=== PATIENT | female | born 1960 | race Caucasian/White ===

== ENCOUNTER → 2017-06-14 10:29 | Outpatient (CLI) | payer BC, SELFPAY ==
[2017-06-14 13:17] LABS: Anion Gap 10 (5-15); BUN 10 mg/dL (7-18); Calcium,Total 9.2 mg/dL (8.5-10.1); Chloride 99 mmol/L (98-107); Cholesterol 193 mg/dL (200); Creatinine, Serum 0.67 mg/dL (0.55-1.02); EST Glomerular Filtration Rate 96 mL/min (>60); Est Glom Filt Rate - Afr Amer 117 mL/min (>60); Glucose 84 mg/dL (74-106); High Density Lipoprotein 58 mg/dL; Potassium 3.9 mmol/L (3.5-5.1); Sodium Level 136 mmol/L (136-145); Triglycerides 304 mg/dL; Very Low Density Lipoprotein 61 mg/dL (5-40)
== END ==
PROVIDERS: Family Provider Family Medicine; PCP Family Medicine; Visit Provider Family Medicine
DX: I10 Essential (primary) hypertension (principal); E78.00 Pure hypercholesterolemia, unspecified
CPT/HCPCS: 36415; 80048; 80061

== ENCOUNTER → 2017-07-05 15:56 | Outpatient (CLI) | payer BC, SELFPAY ==
--- NOTE | 2017-07-05 15:58 | HPBI_ITS ---
MAMMOGRAPHY - BILATERAL SCREENING REASON FOR EXAM: Female, 56 years old. Routine annual screening examination. PERTINENT HISTORY: Non-contributory. TECHNIQUE: Digital bilateral breast vivien (3D mammographic acquisition) in the CC and MLO projections. 2-D mediolateral oblique (MLO) and craniocaudad (CC) views of both breasts were obtained. CAD: Full Field Digital Mammography with Computer Added Detection was performed. COMPARISON: Comparison is made with prior study dated May 29, 2015 and May 23, 2014. FINDINGS: Breast Composition: There are scattered areas of fibroglandular density. There are no dominant masses or suspicious calcifications. No other significant abnormalities are identified. There has been no significant change since the prior study. HPBI/SCREENING MAMM (CAD), BILAT IMPRESSION: Stable bilateral screening mammogram. Yearly follow-up mammogram recommended. (A) ASSESSMENT CATEGORY: BIRADS Category 1: Negative. A letter regarding these results will be sent to the patient by the facility within 30 days. Approximately 10% of breast cancers are not detected by mammography. A normal mammogram should not delay biopsy of a clinically suspicious abnormality. [id number] Electronically Signed: Shane George MD at 8:06 EDT Tel [phone], Service support ,
== END ==
PROVIDERS: Family Provider Family Medicine; PCP Family Medicine; Visit Provider Family Medicine
DX: Z12.31 Encounter for screening mammogram for malignant neoplasm of breast (principal)
CPT/HCPCS: 77063; 77067

== ENCOUNTER → 2018-03-15 08:41 | Outpatient (CLI) | payer BC, SELFPAY ==
[2018-03-15 10:31] LABS: Cholesterol 236 mg/dL (200); High Density Lipoprotein 64 mg/dL; Triglycerides 320 mg/dL; Very Low Density Lipoprotein 64 mg/dL (5-40)
[2018-03-15 10:46] LABS: Vitamin D,25 Hydroxy 30.8 ng/mL (29.95-100.01)
--- OUTSIDE RECORDS SUMMARY | 2018-05-10 14:02 | XMS RPT_ITS ---
:1960 Author Organization OHIP Care Team Providers Name Role Phone Flip Leone Attending Unavailable Flip Leone Primary Care Unavailable Flip Leone Attending Unavailable Flip Leone Primary Care Unavailable Flip Leone Attending Unavailable Flip Leone Primary Care Unavailable YOVANI DAMON Admitting Unavailable YOVANI DAMON Attending Unavailable YOVANI DAMON Referring Unavailable TYLER DANIELS (PA) Attending Unavailable FLIP LEONE Referring Unavailable PROBLEMS PROBLEMS DATE TYPE CONDITION / CODE ATTENDING STATUS SOURCE 03/15/2018 Unknown E78.00 - Pure Flip Leone Active [facility] hypercholesterolem [facility], unspecified / Hospital E78.00(ICD-10) Repository 03/15/2018 Unknown E55.9 - Vitamin D Flip Leone Active [facility] deficiency, Community unspecified / Hospital E55.9(ICD-10) Repository 07/22/2017 Active Family history of MARISOL, Active [facility] malignant neoplasm YOVANI T [facility] of digestive Repository organs / Z80.0(ICD-10) 06/14/2017 Unknown I10 - Essential Flip Leone Active [facility] (primary) [facility] hypertension / Hospital I10(ICD-10) Repository PROCEDURES PROCEDURES No Procedure Records FoundRESULTS RESULTS LIPID PROFILE Collected: 03/15/2018 Status: F Source: [place] 8:45 AM [facility] REPOSITORY TYPE CODE TESTS RESULT OUT OF RANGE REFERENCE UNITS LAB L501.4900 200 mg/dL High CHOL 236 Result Comment: <200 mg/dL Desirable 200-240 mg/dL Borderline >240 mg/dL High Risk LAB L501.5000 mg/dL High TRIG 320 Result Comment: The drugs N-Acetylcysteine and Metamizole may falsely depress this assay. Serum Triglycerides Reference Interval Normal <150 mg/dL Borderline high 150 - 199 mg/dL High 200 - 499 mg/dL Very High > or = 500 mg/dL LAB L501.6400 mg/dL Normal HDL 64 Result Comment: The drugs N-Acetylcysteine and Metamizole may falsely depress this assay. Reference Range HDL <40 mg/dL Low HDL Cholesterol HDL >or= 60 mg/dL High HDL Cholesterol LAB L501.6500 0-130 mg/dL Normal LDL 108 LAB L501.6600 5-40 mg/dL High VLDL 64 Performed By: #### L500.4100 #### [facility] [address] [place], [address] VITAMIN D,25 HYDROXY Collected: 03/15/2018 Status: F Source: [place] 8:45 AM [facility] REPOSITORY TYPE CODE TESTS RESULT OUT OF RANGE REFERENCE UNITS LAB L506.1000 29.95-100.01 ng/mL Normal Vitamin D 30.8 25-OH Result Comment: Vitamin D 25(OH) Status Range Deficiency <20 ng/mL (50nmol/L) Insuffciency 20 - 30 ng/mL (50 - 75 nmol/L) Sufficiency 30 - 100 ng/mL (75 - 250 nmol/L) Toxicity >100 ng/mL (>250 nmol/L) Performed By: #### L506.1000 #### [facility] [address] [place], [address] NURSING PROG Observed: 07/22/2017 Status: COMPLETED Source: [place] 12:58 PM [facility] REPOSITORY HNO ID: [id number] Author: Vito RaymondRnGloria Salter RN Service: Nursing Author Type: Registered Nurse Type: Nursing Progress Note Filed: 07/22/2017 1:00 PM Note Text: Patient did not experience a fall prior to discharge. Patient did not experience a burn prior to discharge. Vito Salter RN NURSING PROG Observed: 07/22/2017 Status: COMPLETED Source: [place] 12:40 PM [facility] REPOSITORY HNO ID: [id number] Author: Vito RaymondRnGloria Salter RN Service: Nursing Author Type: Registered Nurse Type: Nursing Progress Note Filed: 07/22/2017 12:41 PM Note Text: Tolerating snack well, sister at her side. PT ED Observed: 07/22/2017 Status: COMPLETED Source: [place] 12:25 PM [facility] REPOSITORY HNO ID: [id number] Author: Vito Salter RN Service: Nursing Author Type: Registered Nurse Type: Patient Education Filed: 07/22/2017 12:25 PM Note Text: POST OP LEARNING RESPONSE INSTRUCTION PROVIDED TO: Patient and family member METHOD OF INSTRUCTION: Individual instruction Written instruction - handouts Verbal instruction PATIENT / FAMILY RESPONSE: Information received as demonstrated by interest and questions FOLLOW-UP PLAN: Patient instructed to call with any further issues SUPPLEMENTAL MATERIAL: None REFERRAL (RECOMMENDATION): None Electronically Signed By: Vito Salter RN In Department: AMBULATORY SURGERY NURSING PROG Observed: 07/22/2017 Status: COMPLETED Source: [place] 12:20 PM [facility] REPOSITORY HNO ID: [id number] Author: Vito RaymondRn) JESSIE Salter Service: Nursing Author Type: Registered Nurse Type: Nursing Progress Note Filed: 07/22/2017 12:23 PM Note Text: Dr Damon to visit, with sister. NURSING PROG Observed: 07/22/2017 Status: COMPLETED Source: [place] 12:02 PM [facility] REPOSITORY HNO ID: [id number] Author: Samantha Moise RN Service: (none) Author Type: Registered Nurse Type: Nursing Progress Note Filed: 07/22/2017 12:02 PM Note Text: Patient did not experience a fall within the Intraoperative area. Patient did not experience a burn within the Intraoperative area. Samantha Moise RN NURSING PROG Observed: 07/22/2017 Status: COMPLETED Source: [place] 11:45 AM [facility] REPOSITORY HNO ID: [id number] Author: Dora Siddiqui RN Service: (none) Author Type: Registered Nurse Type: Nursing Progress Note Filed: 07/22/2017 11:46 AM Note Text: [facility] PRE-OP NURSING HAND OFF NOTE SBAR Hand off given to Darcie Juarez RN. Hand off was communicated verbally and at the patient's bedside and all questions were answered. FALLS/FITZGERALD Patient did not experience a fall within the Preoperative area. Patient did not experience a burn within the Preoperative area. Dora Siddiqui RN PT ED Observed: 07/22/2017 Status: COMPLETED Source: [place] 11:22 AM [facility] REPOSITORY HNO ID: [id number] Author: Nikki RaymondRnGloria Okeefe RN Service: (none) Author Type: Registered Nurse Type: Patient Education Filed: 07/22/2017 11:23 AM Note Text: PRE OP LEARNING ASSESSMENT PROCEDURE/SURGERY: GI PROCEDURES: Colonoscopy READINESS TO LEARN COGNITIVE ABILITY: Alert and oriented MOTIVATION TO LEARN: Eager FAMILY SUPPORT: High - Very involved in pt care PATIENT LEARNS BEST BY: Multiple Methods FACTORS AFFECTING LEARNING: None PHYSICAL LIMITATIONS AFFECTING LEARNING: None Electronically Signed By: Nikki Okeefe RN In Department: AMBULATORY SURGERY HISTORY PHYSICAL Observed: 07/22/2017 Status: COMPLETED Source: [place] 10:37 AM [facility] REPOSITORY HNO ID: [id number] Author: Yovani Damon Service: General Surgery Author Type: Physician Type: HANDP Filed: 07/22/2017 10:37 AM Note Text: HISTORY AND PHYSICAL ? Geo Tran Collin 1960 ? REFERRING PHYSICIAN: Flip Leone MD ? CHIEF COMPLAINT: family history of colon cancer ? HPI: The patient is a 56 year old female referred for endoscopy. Geo notes a strong family history of colon cancer-brother and sister. She is due for surveillance endoscopy, last was in 2013 with 4-year follow-up recommended by Dr. Ramirez. She denies any change in bowel habits, weight changes, blood in stools, black tarry stools or abdominal pain. She denies any upper GI complaints. ? The patient is being seen by me today at the request of Dr. Leone for my opinion and advice regarding screening colonoscopy. Patient denies any cardiac or respiratory issues. She denies problems with sedation in the past. ? ? PAST?MEDICAL?HISTORY PAST MEDICAL HISTORY Diagnosis Date - Benign neoplasm of colon ? - Diverticulosis of colon (without mention of hemorrhage) ? - Family history of malignant neoplasm of gastrointestinal tract ? - Internal hemorrhoids without mention of complication ? - Mixed hyperlipidemia ? - Skin cancer ? ? specific type not recalled - on face ? ? PAST?SURGICAL?HISTORY PAST SURGICAL HISTORY Procedure Laterality Date - COLONOSCOP W/ OR W/O BRSH SPEC ? 01/12/99 ? Colonoscopy - COLONOSCOP W/ OR W/O BRSH SPEC ? 08/02/03 ? Colonoscopy - COLONOSCOP W/ OR W/O BRSH SPEC ? 06/08/2013 ? Colonoscopy - COLONOSCOPY W/BX ? 10/10/09 - MOHS, 1 STAGE, HEAD/NECK/HAND/FEET/GENTIAL ? CURRENT?MEDICATIONS ? Current Outpatient Prescriptions: icosapent ethyl (VASCEPA) 1 gram cap Take by mouth. lisinopril (ZESTRIL, PRINIVIL) 10 mg tablet Take 10 mg by mouth once daily. rosuvastatin (CRESTOR) 10 mg tablet Take 10 mg by mouth once daily. CALCIUM PHOSPHATE DIBAS/VIT D3 (VITAMIN D, WITH CALCIUM, ORAL) Take by mouth. ? No current facility-administered medications for this visit. ? ALLERGIES: Review of patient's allergies indicates no known allergies. ? PERSONAL HISTORY: SOCIAL?HISTORY Social History Marital status: Spouse name: Years of education: Number of children: 1 ? Occupational History Occupation Employer Comment [employer] ? Social History Main Topics Smoking status: Never Smoker ? Alcohol use: Yes Drug use: No ? FAMILY HISTORY: FAMILY?HISTORY FAMILY HISTORY Problem Relation Age of Onset - Colon Cancer Sister ? ? ? Diagnosed at age 48 - Colon Cancer Brother ? ? ? of the disease at age 38 ? ? REVIEW OF SYMPTOMS: The review of systems data was entered by the nurse and reviewed by me ? Nursing Notes: Martha Ortiz LPN 06/28/2017 8:28 AM Signed REVIEW OF SYSTEMS: General: The patient denies fatigue, denies weight loss, denies weight gain, denies feeling hot, and denies feelings of cold. Eyes: The patient denies glaucoma, denies eye injury/surgery, does not wear glasses or contacts. Ear/Nose/Throat: The patient denies allergies, denies hayfever, denies ear infections, and denies bloody noses. Cardiovascular: The patient denies chest pain, denies heart disease, denies high blood pressure,denies cardiac stent, denies prior heart attack, denies irregular heart beat, denies high cholesterol, denies poor circulation, denies heart failure, other cardiac issues, denies claudication, denies cold feet, denies peripheral arterial stent. Respiratory: The patient denies tuberculosis, denies pneumonia, denies frequent cough, denies pulmonary embolism, denies shortness of breath, and denies coughing up blood. Gastrointestinal: The patient denies difficulty swallowing, denies acid reflux, denies ulcers, denies vomiting, denies jaundice/hepatitis, denies gallbladder problems, denies black or tarry stools, denies hemorrhoids, denies bleeding from rectum, denies diverticulitis, denies constipation, denies diarrhea, denies loss of stool control, and denies hernias. Kidney/Bladder: The patient denies kidney stones, denies urine infections, and denies bloody urine. Skin: The patient denies a history of skin cancer, denies bleeding/changing moles, and denies a history of skin rash. Neurologic: The patient denies a history of epilepsy/convulsions, denies headaches, denies head/spinal injuries, and denies stroke/TIA. Psychiatric: The patient denies psychiatric medications, denies depression, and denies voices, denies substance abuse. Endocrine: The patient denies thyroid disorders, denies diabetes, and denies hormonal problems. Hematologic: The patient denies a history of bruising, denies bleeding, and denies anemia, denies blood clots. Infections: The patient denies a history of measles and mumps, denies rheumatic fever, and denies sexually transmitted diseases. Musculoskeletal: The patient denies back pain/injury, denies back problems, denies sciatica, denies knee/foot trouble, denies arthritis, or denies gout. ? ? When was patient's last Mammogram screening? 2 years ago ? Last Colonoscopy: 2013 ? Martha Daniels PA-C ? ?? PHYSICAL EXAMINATION: ? General: The patient is 56 year old female, well nourished, well hydrated in no acute distress. The patient is oriented to time, place, and person. ? VITALS: Blood pressure 148/78, pulse 80, weight 74.8 kg (165 lb). There is no height or weight on file to calculate BMI. ? HEENT: Normal cephalic, ataumatic, pupils are equally round, sclera are anicteric, mucous membranes are moist, oropharynx is clear. Neck has no masses, asymmetry or lymphadenopathy. ? Respiratory: Clear to auscultation and percussion. Normal respiratory excursion and pattern. ? Cardiac: Examination is regular rate and rhythm. ? Abdominal exam: Soft, nontender, with no palpable masses. No hepatosplenomegaly. No palpable hernias. ? Rectal exam: exam deferred ? Extremities: no clubbing, cyanosis or edema. No adenopathy. ? Other: ? LABORATORY VALUES: As Noted ? RADIOLOGIC STUDIES: As Noted ? Assessment IMPRESSION: encounter for high-risk screening colonoscopy, strong family history of colon cancer ? PLAN: We will plan for screening colonoscopy. We discussed the risks and benefits of the planned endoscopy. I have informed the patient that complications can occur including failure to complete the endoscopy and perforation. The patient had the opportunity to ask questions concerning the planned endoscopy. My staff has also explained the procedure to the patient in understandable terms and has given the patient printed material concerning the procedure. The patient freely consents to surgery. ? I plan to use golytely bowel preparation for endoscopy ? ? Diagnoses: (Z80.0) Family history of malignant neoplasm of gastrointestinal tract (primary encounter diagnosis) ? My findings have been communicated to Dr. Leone via shared medical record. This note will be forwarded to Dr. Flip Leone MD. ?? Return to Clinic: The patient is instructed to follow-up with me 1 week post operatively. ? ? I spent 20 minutes in the visit, with more than 50% of the total [id number] time of the visit in counseling / coordination of care. ? ? Tyler Daniels PA-C SCREENING MAMM (CAD), Observed: 07/05/2017 Status: F Source: [place] 3:58 PM [facility] REPOSITORY [facility] Imaging Services [address] [place] [address] SCREENING MAMM (CAD), BILAT MR#: [id number] Acct: [id number] Name: GEO MCGUIRE Rep #: [id number] : 1960 F 56 From: Shane George MD PCP: Flip Leone MD Status: REG CLI Study: SCREENING MAMM (CAD), BILAT Date of Exam: 07/05/17 Exam# [id number] Ordering Dr: Flip Leone MD MAMMOGRAPHY - BILATERAL SCREENING REASON FOR EXAM: Female, 56 years old. Routine annual screening examination. PERTINENT HISTORY: Non-contributory. TECHNIQUE: Digital bilateral breast vivien (3D mammographic acquisition) in the CC and MLO projections. 2-D mediolateral oblique (MLO) and craniocaudad (CC) views of both breasts were obtained. CAD: Full Field Digital Mammography with Computer Added Detection was performed. COMPARISON: Comparison is made with prior study dated May 29, 2015 and May 23, 2014. FINDINGS: Breast Composition: There are scattered areas of fibroglandular density. There are no dominant masses or suspicious calcifications. No other significant abnormalities are identified. There has been no significant change since the prior study. HPBI/SCREENING MAMM (CAD), BILAT IMPRESSION: Stable bilateral screening mammogram. Yearly follow-up mammogram recommended. (A) ASSESSMENT CATEGORY: BIRADS Category 1: Negative. A letter regarding these results will be sent to the patient by the facility within 30 days. Approximately 10% of breast cancers are not detected by mammography. A normal mammogram should not delay biopsy of a clinically suspicious abnormality. [id number] Electronically Signed: Shane George MD at 8:06 EDT Tel [phone], Service support , CC: Flip Leone MD Shower Attendant: Signed PROGRESS Observed: 06/28/2017 Status: COMPLETED Source: [place] 8:38 AM [facility] [place] REPOSITORY HNO ID: [id number] Author: Tyler Daniels (Pa) Service: (none) Author Type: Physician Spanish Interpreter/Translator Type: Progress Notes Filed: 06/28/2017 10:55 AM Note Text: HISTORY AND PHYSICAL Geo Mcguire 1960 REFERRING PHYSICIAN: Flip Leone MD CHIEF COMPLAINT: family history of colon cancer HPI: The patient is a 56 year old female referred for endoscopy. Geo notes a strong family history of colon cancer-brother and sister. She is due for surveillance endoscopy, last was in 2013 with 4-year follow-up recommended by Dr. Ramirez. She denies any change in bowel habits, weight changes, blood in stools, black tarry stools or abdominal pain. She denies any upper GI complaints. The patient is being seen by me today at the request of Dr. Leone for my opinion and advice regarding screening colonoscopy. Patient denies any cardiac or respiratory issues. She denies problems with sedation in the past. PAST MEDICAL HISTORY Diagnosis Date - Benign neoplasm of colon - Diverticulosis of colon (without mention of hemorrhage) - Family history of malignant neoplasm of gastrointestinal tract - Internal hemorrhoids without mention of complication - Mixed hyperlipidemia - Skin cancer specific type not recalled - on face PAST SURGICAL HISTORY Procedure Laterality Date - COLONOSCOP W/ OR W/O [facility] SPEC 01/12/99 Colonoscopy - COLONOSCOP W/ OR W/O BRS SPEC 08/02/03 Colonoscopy - COLONOSCOP W/ OR W/O BRS SPEC 06/08/2013 Colonoscopy - COLONOSCOPY W/BX 10/10/09 - MOHS, 1 STAGE, HEAD/NECK/HAND/FEET/GENTIAL Current Outpatient Prescriptions: icosapent ethyl (VASCEPA) 1 gram cap Take by mouth. lisinopril (ZESTRIL, PRINIVIL) 10 mg tablet Take 10 mg by mouth once daily. rosuvastatin (CRESTOR) 10 mg tablet Take 10 mg by mouth once daily. CALCIUM PHOSPHATE DIBAS/VIT D3 (VITAMIN D, WITH CALCIUM, ORAL) Take by mouth. No current facility-administered medications for this visit. ALLERGIES: Review of patient's allergies indicates no known allergies. PERSONAL HISTORY: Social History Marital status: Spouse name: Years of education: Number of children: 1 Occupational History Occupation Employer Comment [employer] Social History Main Topics Smoking status: Never Smoker Alcohol use: Yes Drug use: No FAMILY HISTORY: FAMILY HISTORY Problem Relation Age of Onset - Colon Cancer Sister Diagnosed at age 48 - Colon Cancer Brother of the disease at age 38 REVIEW OF SYMPTOMS: The review of systems data was entered by the nurse and reviewed by me Nursing Notes: Martha Ortiz LPN 06/28/2017 8:28 AM Signed REVIEW OF SYSTEMS: General: The patient denies fatigue, denies weight loss, denies weight gain, denies feeling hot, and denies feelings of cold. Eyes: The patient denies glaucoma, denies eye injury/surgery, does not wear glasses or contacts. Ear/Nose/Throat: The patient denies allergies, denies hayfever, denies ear infections, and denies bloody noses. Cardiovascular: The patient denies chest pain, denies heart disease, denies high blood pressure,denies cardiac stent, denies prior heart attack, denies irregular heart beat, denies high cholesterol, denies poor circulation, denies heart failure, other cardiac issues, denies claudication, denies cold feet, denies peripheral arterial stent. Respiratory: The patient denies tuberculosis, denies pneumonia, denies frequent cough, denies pulmonary embolism, denies shortness of breath, and denies coughing up blood. Gastrointestinal: The patient denies difficulty swallowing, denies acid reflux, denies ulcers, denies vomiting, denies jaundice/hepatitis, denies gallbladder problems, denies black or tarry stools, denies hemorrhoids, denies bleeding from rectum, denies diverticulitis, denies constipation, denies diarrhea, denies loss of stool control, and denies hernias. Kidney/Bladder: The patient denies kidney stones, denies urine infections, and denies bloody urine. Skin: The patient denies a history of skin cancer, denies bleeding/changing moles, and denies a history of skin rash. Neurologic: The patient denies a history of epilepsy/convulsions, denies headaches, denies head/spinal injuries, and denies stroke/TIA. Psychiatric: The patient denies psychiatric medications, denies depression, and denies voices, denies substance abuse. Endocrine: The patient denies thyroid disorders, denies diabetes, and denies hormonal problems. Hematologic: The patient denies a history of bruising, denies bleeding, and denies anemia, denies blood clots. Infections: The patient denies a history of measles and mumps, denies rheumatic fever, and denies sexually transmitted diseases. Musculoskeletal: The patient denies back pain/injury, denies back problems, denies sciatica, denies knee/foot trouble, denies arthritis, or denies gout. When was patient's last Mammogram screening? 2 years ago Last Colonoscopy: 2013 Martha Daniels PA-C PHYSICAL EXAMINATION: General: The patient is 56 year old female, well nourished, well hydrated in no acute distress. The patient is oriented to time, place, and person. VITALS: Blood pressure 148/78, pulse 80, weight 74.8 kg (165 lb). There is no height or weight on file to calculate BMI. HEENT: Normal cephalic, ataumatic, pupils are equally round, sclera are anicteric, mucous membranes are moist, oropharynx is clear. Neck has no masses, asymmetry or lymphadenopathy. Respiratory: Clear to auscultation and percussion. Normal respiratory excursion and pattern. Cardiac: Examination is regular rate and rhythm. Abdominal exam: Soft, nontender, with no palpable masses. No hepatosplenomegaly. No palpable hernias. Rectal exam: exam deferred Extremities: no clubbing, cyanosis or edema. No adenopathy. Other: LABORATORY VALUES: As Noted RADIOLOGIC STUDIES: As Noted Assessment IMPRESSION: encounter for high-risk screening colonoscopy, strong family history of colon cancer PLAN: We will plan for screening colonoscopy. We discussed the risks and benefits of the planned endoscopy. I have informed the patient that complications can occur including failure to complete the endoscopy and perforation. The patient had the opportunity to ask questions concerning the planned endoscopy. My staff has also explained the procedure to the patient in understandable terms and has given the patient printed material concerning the procedure. The patient freely consents to surgery. I plan to use Ziipa bowel preparation for endoscopy Diagnoses: (Z80.0) Family history of malignant neoplasm of gastrointestinal tract (primary encounter diagnosis) My findings have been communicated to Dr. Leone via shared medical record. This note will be forwarded to Dr. Flip Leone MD. Return to Clinic: The patient is instructed to follow-up with me 1 week post operatively. I spent 20 minutes in the visit, with more than 50% of the total qjes-ez-vfzl time of the visit in counseling / coordination of care. LUISA Lynne Observed: 06/28/2017 Status: COMPLETED Source: [place] 8:30 AM [facility] REPOSITORY Office Visit (GENSWS) GEO MCGUIRE ([id number]) 1960 F Date Time Provider Department 06/28/17 8:30 AM TYLER DANIELS) [facility] During your visit today, we recorded the following information about you: Pulse Blood pressure Weight 80/minute 148/78 74.8 kg Martha Ortiz SUPERVISOR URANIUM PROCESSING 06/28/2017 8:28 AM Signed REVIEW OF SYSTEMS: General: The patient denies fatigue, denies weight loss, denies weight gain, denies feeling hot, and denies feelings of cold. Eyes: The patient denies glaucoma, denies eye injury/surgery, does not wear glasses or contacts. Ear/Nose/Throat: The patient denies allergies, denies hayfever, denies ear infections, and denies bloody noses. Cardiovascular: The patient denies chest pain, denies heart disease, denies high blood pressure,denies cardiac stent, denies prior heart attack, denies irregular heart beat, denies high cholesterol, denies poor circulation, denies heart failure, other cardiac issues, denies claudication, denies cold feet, denies peripheral arterial stent. Respiratory: The patient denies tuberculosis, denies pneumonia, denies frequent cough, denies pulmonary embolism, denies shortness of breath, and denies coughing up blood. Gastrointestinal: The patient denies difficulty swallowing, denies acid reflux, denies ulcers, denies vomiting, denies jaundice/hepatitis, denies gallbladder problems, denies black or tarry stools, denies hemorrhoids, denies bleeding from rectum, denies diverticulitis, denies constipation, denies diarrhea, denies loss of stool control, and denies hernias. Kidney/Bladder: The patient denies kidney stones, denies urine infections, and denies bloody urine. Skin: The patient denies a history of skin cancer, denies bleeding/changing moles, and denies a history of skin rash. Neurologic: The patient denies a history of epilepsy/convulsions, denies headaches, denies head/spinal injuries, and denies stroke/TIA. Psychiatric: The patient denies psychiatric medications, denies depression, and denies voices, denies substance abuse. Endocrine: The patient denies thyroid disorders, denies diabetes, and denies hormonal problems. Hematologic: The patient denies a history of bruising, denies bleeding, and denies anemia, denies blood clots. Infections: The patient denies a history of measles and mumps, denies rheumatic fever, and denies sexually transmitted diseases. Musculoskeletal: The patient denies back pain/injury, denies back problems, denies sciatica, denies knee/foot trouble, denies arthritis, or denies gout. When was patient's last Mammogram screening? 2 years ago Last Colonoscopy: 2013 Martha Daniels PA-C 06/28/2017 10:55 AM Signed HISTORY AND PHYSICAL Geo Mcguire 1960 REFERRING PHYSICIAN: Flip Leone MD CHIEF COMPLAINT: family history of colon cancer HPI: The patient is a 56 year old female referred for endoscopy. Geo notes a strong family history of colon cancer-brother and sister. She is due for surveillance endoscopy, last was in 2013 with 4-year follow- up recommended by Dr. Ramirez. She denies any change in bowel habits, weight changes, blood in stools, black tarry stools or abdominal pain. She denies any upper GI complaints. The patient is being seen by me today at the request of Dr. Leone for my opinion and advice regarding screening colonoscopy. Patient denies any cardiac or respiratory issues. She denies problems with sedation in the past. PAST MEDICAL HISTORY Diagnosis Date - Benign neoplasm of colon - Diverticulosis of colon (without mention of hemorrhage) - Family history of malignant neoplasm of gastrointestinal tract - Internal hemorrhoids without mention of complication - Mixed hyperlipidemia - Skin cancer specific type not recalled - on face PAST SURGICAL HISTORY Procedure Laterality Date - COLONOSCOP W/ OR W/O [facility] SPEC 01/12/99 Colonoscopy - COLONOSCOP W/ OR W/O [facility] 08/02/03 Colonoscopy - COLONOSCOP W/ OR W/O [facility] SPEC 06/08/2013 Colonoscopy - COLONOSCOPY W/BX 10/10/09 - MOHS, 1 STAGE, HEAD/NECK/HAND/FEET/GENTIAL Current Outpatient Prescriptions: icosapent ethyl (VASCEPA) 1 gram cap Take by mouth. lisinopril (ZESTRIL, PRINIVIL) 10 mg tablet Take 10 mg by mouth once daily. rosuvastatin (CRESTOR) 10 mg tablet Take 10 mg by mouth once daily. CALCIUM PHOSPHATE DIBAS/VIT D3 (VITAMIN D, WITH CALCIUM, ORAL) Take by mouth. No current facility-administered medications for this visit. ALLERGIES: Review of patient's allergies indicates no known allergies. PERSONAL HISTORY: Social History Marital status: Spouse name: Years of education: Number of children: 1 Occupational History Occupation Employer Comment [employer] Social History Main Topics Smoking status: Never Smoker Alcohol use: Yes Drug use: No FAMILY HISTORY: FAMILY HISTORY Problem Relation Age of Onset - Colon Cancer Sister Diagnosed at age 48 - Colon Cancer Brother of the disease at age 38 REVIEW OF SYMPTOMS: The review of systems data was entered by the nurse and reviewed by me Nursing Notes: Martha Ortiz LPN 06/28/2017 8:28 AM Signed REVIEW OF SYSTEMS: General: The patient denies fatigue, denies weight loss, denies weight gain, denies feeling hot, and denies feelings of cold. Eyes: The patient denies glaucoma, denies eye injury/surgery, does not wear glasses or contacts. Ear/Nose/Throat: The patient denies allergies, denies hayfever, denies ear infections, and denies bloody noses. Cardiovascular: The patient denies chest pain, denies heart disease, denies high blood pressure,denies cardiac stent, denies prior heart attack, denies irregular heart beat, denies high cholesterol, denies poor circulation, denies heart failure, other cardiac issues, denies claudication, denies cold feet, denies peripheral arterial stent. Respiratory: The patient denies tuberculosis, denies pneumonia, denies frequent cough, denies pulmonary embolism, denies shortness of breath, and denies coughing up blood. Gastrointestinal: The patient denies difficulty swallowing, denies acid reflux, denies ulcers, denies vomiting, denies jaundice/hepatitis, denies gallbladder problems, denies black or tarry stools, denies hemorrhoids, denies bleeding from rectum, denies diverticulitis, denies constipation, denies diarrhea, denies loss of stool control, and denies hernias. Kidney/Bladder: The patient denies kidney stones, denies urine infections, and denies bloody urine. Skin: The patient denies a history of skin cancer, denies bleeding/changing moles, and denies a history of skin rash. Neurologic: The patient denies a history of epilepsy/convulsions, denies headaches, denies head/spinal injuries, and denies stroke/TIA. Psychiatric: The patient denies psychiatric medications, denies depression, and denies voices, denies substance abuse. Endocrine: The patient denies thyroid disorders, denies diabetes, and denies hormonal problems. Hematologic: The patient denies a history of bruising, denies bleeding, and denies anemia, denies blood clots. Infections: The patient denies a history of measles and mumps, denies rheumatic fever, and denies sexually transmitted diseases. Musculoskeletal: The patient denies back pain/injury, denies back problems, denies sciatica, denies knee/foot trouble, denies arthritis, or denies gout. When was patient's last Mammogram screening? 2 years ago Last Colonoscopy: 2013 Martha Daniels PA-C PHYSICAL EXAMINATION: General: The patient is 56 year old female, well nourished, well hydrated in no acute distress. The patient is oriented to time, place, and person. VITALS: Blood pressure 148/78, pulse 80, weight 74.8 kg (165 lb). There is no height or weight on file to calculate BMI. HEENT: Normal cephalic, ataumatic, pupils are equally round, sclera are anicteric, mucous membranes are moist, oropharynx is clear. Neck has no masses, asymmetry or lymphadenopathy. Respiratory: Clear to auscultation and percussion. Normal respiratory excursion and pattern. Cardiac: Examination is regular rate and rhythm. Abdominal exam: Soft, nontender, with no palpable masses. No hepatosplenomegaly. No palpable hernias. Rectal exam: exam deferred Extremities: no clubbing, cyanosis or edema. No adenopathy. Other: LABORATORY VALUES: As Noted RADIOLOGIC STUDIES: As Noted Assessment IMPRESSION: encounter for high-risk screening colonoscopy, strong family history of colon cancer PLAN: We will plan for screening colonoscopy. We discussed the risks and benefits of the planned endoscopy. I have informed the patient that complications can occur including failure to complete the endoscopy and perforation. The patient had the opportunity to ask questions concerning the planned endoscopy. My staff has also explained the procedure to the patient in understandable terms and has given the patient printed material concerning the procedure. The patient freely consents to surgery. I plan to use golytely bowel preparation for endoscopy Diagnoses: (Z80.0) Family history of malignant neoplasm of gastrointestinal tract (primary encounter diagnosis) My findings have been communicated to Dr. Leone via shared medical record. This note will be forwarded to Dr. Flip Leone MD. Return to Clinic: The patient is instructed to follow-up with me 1 week post operatively. I spent 20 minutes in the visit, with more than 50% of the total [id number] time of the visit in counseling / coordination of care. Tyler Daniels PA-C Referring Provider: FLIP LEONE [[id number]] Allergies As of Date: 06/28/2017 (No Known Allergies) Date Reviewed: 06/28/2017 Reviewed by: Tyler Daniels (Pa) - Fully Assessed Reason for Visit: family history of colon cancer [Other] Primary Visit Diagnosis:Family history of malignant neoplasm of gastrointestinal tract [Z80.0] Order(s):[] peg 3350-Electrolytes (GOLYTELY) 236-22.74-6.74 -5.86 gram suspensionTake 4,000 mL by mouth one time only for 1 dose.Disp: 1 BottleRfl: 0 Prescriptions as of 06/28/2017 Sig: ICOSAPENT ETHYL 1 GRAM CAPSULE Take by mouth. LISINOPRIL 10 MG TABLET Take 10 mg by mouth once zita* ROSUVASTATIN 10 MG TABLET Take 10 mg by mouth once zita* VITAMIN D (WITH CALCIUM) ORAL Take by mouth. PEG 3350-ELECTROLYTES 236 GRA* Take 4,000 mL by mouth one ti* Problem List As Of Date 06/28/2017 Noted Resolved Mixed Hyperlipidemia [E78.2] Family History of Malignant Neoplasm of Gastroi*INVALID FOR* Visit Notes: >> Martha Robles Jun 28, 2017 8:27 AM Status: Signed REVIEW OF SYSTEMS: General: The patient denies fatigue, denies weight loss, denies weight gain, denies feeling hot, and denies feelings of cold. Eyes: The patient denies glaucoma, denies eye injury/surgery, does not wear glasses or contacts. Ear/Nose/Throat: The patient denies allergies, denies hayfever, denies ear infections, and denies bloody noses. Cardiovascular: The patient denies chest pain, denies heart disease, denies high blood pressure,denies cardiac stent, denies prior heart attack, denies irregular heart beat, denies high cholesterol, denies poor circulation, denies heart failure, other cardiac issues, denies claudication, denies cold feet, denies peripheral arterial stent. Respiratory: The patient denies tuberculosis, denies pneumonia, denies frequent cough, denies pulmonary embolism, denies shortness of breath, and denies coughing up blood. Gastrointestinal: The patient denies difficulty swallowing, denies acid reflux, denies ulcers, denies vomiting, denies jaundice/hepatitis, denies gallbladder problems, denies black or tarry stools, denies hemorrhoids, denies bleeding from rectum, denies diverticulitis, denies constipation, denies diarrhea, denies loss of stool control, and denies hernias. Kidney/Bladder: The patient denies kidney stones, denies urine infections, and denies bloody urine. Skin: The patient denies a history of skin cancer, denies bleeding/changing moles, and denies a history of skin rash. Neurologic: The patient denies a history of epilepsy/convulsions, denies headaches, denies head/spinal injuries, and denies stroke/TIA. Psychiatric: The patient denies psychiatric medications, denies depression, and denies voices, denies substance abuse. Endocrine: The patient denies thyroid disorders, denies diabetes, and denies hormonal problems. Hematologic: The patient denies a history of bruising, denies bleeding, and denies anemia, denies blood clots. Infections: The patient denies a history of measles and mumps, denies rheumatic fever, and denies sexually transmitted diseases. Musculoskeletal: The patient denies back pain/injury, denies back problems, denies sciatica, denies knee/foot trouble, denies arthritis, or denies gout. When was patient's last Mammogram screening? 2 years ago Last Colonoscopy: 2013 Martha Ortiz [facility] Prescriptions ordered this encounter Disp Refills Start End PEG 3350-ELECTROLYTES 236 GRAM-22.74* 1 Paco* 0 06/28/2017 06/28/2017 Route: ORAL Sig: Take 4,000 mL by mouth one time only for 1 dose. Medications Discontinued During This Encounter SIMVASTATIN 80 MG TAB 0 07/21/2009 06/28/2017 Class: Med Update Route: ORAL Sig: Take one(1) tablet daily. Disc: Reason for discontinue is not on file. fenofibric acid(TRILIPIX 135 MG CAP) 0 07/21/2009 06/28/2017 Class: Med Update Route: ORAL Sig: Take one(1) tablet daily. Disc: Reason for discontinue is not on file. MULTIVITAMIN TAB 0 07/21/2009 06/28/2017 Class: Med Update Route: ORAL Sig: Take one(1) tablet daily. Disc: Reason for discontinue is not on file. omega-3 acid ethyl esters(LOVAZA 1 G* 0 07/21/2009 06/28/2017 Class: Med Update Route: ORAL Sig: takes 4 caps daily Disc: Reason for discontinue is not on file. Follow-up and Disposition History Recorded Letter Text Letter Text Encounter Status:Closed by TYLER DANIELS PA-C on 06/28/17 HOSP Observed: 06/28/2017 Status: COMPLETED Source: [place] 12:00 AM [facility] REPOSITORY Patient:Geo Mcguire MRN: <[id number]> Height:No patient height recorded for this patient. Weight:165 lb (74.844 kg) Outpatient Medications as of 07/22/17: icosapent ethyl (VASCEPA) 1 gram cap lisinopril (ZESTRIL, PRINIVIL) 10 mg tablet rosuvastatin (CRESTOR) 10 mg tablet CALCIUM PHOSPHATE DIBAS/VIT D3 (VITAMIN D, WITH CALCIUM, ORAL) Admission/Clinic Administered Medications as of 07/22/17: lactated ringers infusion Problem List: Mixed hyperlipidemia [E78.2] Family history of malignant neoplasm of gastrointestinal tract [Z80.0] Allergies: No Known Allergies Date Verified:07/22/17 Lab Values No results within the last 30 days for the following basenames: K,HCT Progress Notes ([facility]): Olivier Vanegas Surg Coord 06/28/2017 8:47 AM Signed 07-22-2017 Jabari Vanegas Surg Coord Progress Notes ([facility]): Martha Ortiz LPN 06/28/2017 8:28 AM Signed REVIEW OF SYSTEMS: General: The patient denies fatigue, denies weight loss, denies weight gain, denies feeling hot, and denies feelings of cold. Eyes: The patient denies glaucoma, denies eye injury/surgery, does not wear glasses or contacts. Ear/Nose/Throat: The patient denies allergies, denies hayfever, denies ear infections, and denies bloody noses. Cardiovascular: The patient denies chest pain, denies heart disease, denies high blood pressure,denies cardiac stent, denies prior heart attack, denies irregular heart beat, denies high cholesterol, denies poor circulation, denies heart failure, other cardiac issues, denies claudication, denies cold feet, denies peripheral arterial stent. Respiratory: The patient denies tuberculosis, denies pneumonia, denies frequent cough, denies pulmonary embolism, denies shortness of breath, and denies coughing up blood. Gastrointestinal: The patient denies difficulty swallowing, denies acid reflux, denies ulcers, denies vomiting, denies jaundice/hepatitis, denies gallbladder problems, denies black or tarry stools, denies hemorrhoids, denies bleeding from rectum, denies diverticulitis, denies constipation, denies diarrhea, denies loss of stool control, and denies hernias. Kidney/Bladder: The patient denies kidney stones, denies urine infections, and denies bloody urine. Skin: The patient denies a history of skin cancer, denies bleeding/changing moles, and denies a history of skin rash. Neurologic: The patient denies a history of epilepsy/convulsions, denies headaches, denies head/spinal injuries, and denies stroke/TIA. Psychiatric: The patient denies psychiatric medications, denies depression, and denies voices, denies substance abuse. Endocrine: The patient denies thyroid disorders, denies diabetes, and denies hormonal problems. Hematologic: The patient denies a history of bruising, denies bleeding, and denies anemia, denies blood clots. Infections: The patient denies a history of measles and mumps, denies rheumatic fever, and denies sexually transmitted diseases. Musculoskeletal: The patient denies back pain/injury, denies back problems, denies sciatica, denies knee/foot trouble, denies arthritis, or denies gout. When was patient's last Mammogram screening? 2 years ago Last Colonoscopy: 2013 Martha Daniels PA-C 06/28/2017 10:55 AM Signed HISTORY AND PHYSICAL Geo Tran Collin 1960 REFERRING PHYSICIAN: Flip Leone MD CHIEF COMPLAINT: family history of colon cancer HPI: The patient is a 56 year old female referred for endoscopy. Geo notes a strong family history of colon cancer-brother and sister. She is due for surveillance endoscopy, last was in 2013 with 4-year follow- up recommended by Dr. Ramirez. She denies any change in bowel habits, weight changes, blood in stools, black tarry stools or abdominal pain. She denies any upper GI complaints. The patient is being seen by me today at the request of Dr. Leone for my opinion and advice regarding screening colonoscopy. Patient denies any cardiac or respiratory issues. She denies problems with sedation in the past. PAST MEDICAL HISTORY Diagnosis Date - Benign neoplasm of colon - Diverticulosis of colon (without mention of hemorrhage) - Family history of malignant neoplasm of gastrointestinal tract - Internal hemorrhoids without mention of complication - Mixed hyperlipidemia - Skin cancer specific type not recalled - on face PAST SURGICAL HISTORY Procedure Laterality Date - COLONOSCOP W/ OR W/O [facility] SPEC 01/12/99 Colonoscopy - COLONOSCOP W/ OR W/O [facility] SPEC 08/02/03 Colonoscopy - COLONOSCOP W/ OR W/O [facility] SPE[facility] 06/08/2013 Colonoscopy - COLONOSCOPY W/BX 10/10/09 - MOHS, 1 STAGE, HEAD/NECK/HAND/FEET/GENTIAL Current Outpatient Prescriptions: icosapent ethyl (VASCEPA) 1 gram cap Take by mouth. lisinopril (ZESTRIL, PRINIVIL) 10 mg tablet Take 10 mg by mouth once daily. rosuvastatin (CRESTOR) 10 mg tablet Take 10 mg by mouth once daily. CALCIUM PHOSPHATE DIBAS/VIT D3 (VITAMIN D, WITH CALCIUM, ORAL) Take by mouth. No current facility-administered medications for this visit. ALLERGIES: Review of patient's allergies indicates no known allergies. PERSONAL HISTORY: Social History Marital status: Spouse name: Years of education: Number of children: 1 Occupational History Occupation Employer Comment [employer] Social History Main Topics Smoking status: Never Smoker Alcohol use: Yes Drug use: No FAMILY HISTORY: FAMILY HISTORY Problem Relation Age of Onset - Colon Cancer Sister Diagnosed at age 48 - Colon Cancer Brother of the disease at age 38 REVIEW OF SYMPTOMS: The review of systems data was entered by the nurse and reviewed by az Nursing Notes: Martha Ortiz LPN 06/28/2017 8:28 AM Signed REVIEW OF SYSTEMS: General: The patient denies fatigue, denies weight loss, denies weight gain, denies feeling hot, and denies feelings of cold. Eyes: The patient denies glaucoma, denies eye injury/surgery, does not wear glasses or contacts. Ear/Nose/Throat: The patient denies allergies, denies hayfever, denies ear infections, and denies bloody noses. Cardiovascular: The patient denies chest pain, denies heart disease, denies high blood pressure,denies cardiac stent, denies prior heart attack, denies irregular heart beat, denies high cholesterol, denies poor circulation, denies heart failure, other cardiac issues, denies claudication, denies cold feet, denies peripheral arterial stent. Respiratory: The patient denies tuberculosis, denies pneumonia, denies frequent cough, denies pulmonary embolism, denies shortness of breath, and denies coughing up blood. Gastrointestinal: The patient denies difficulty swallowing, denies acid reflux, denies ulcers, denies vomiting, denies jaundice/hepatitis, denies gallbladder problems, denies black or tarry stools, denies hemorrhoids, denies bleeding from rectum, denies diverticulitis, denies constipation, denies diarrhea, denies loss of stool control, and denies hernias. Kidney/Bladder: The patient denies kidney stones, denies urine infections, and denies bloody urine. Skin: The patient denies a history of skin cancer, denies bleeding/changing moles, and denies a history of skin rash. Neurologic: The patient denies a history of epilepsy/convulsions, denies headaches, denies head/spinal injuries, and denies stroke/TIA. Psychiatric: The patient denies psychiatric medications, denies depression, and denies voices, denies substance abuse. Endocrine: The patient denies thyroid disorders, denies diabetes, and denies hormonal problems. Hematologic: The patient denies a history of bruising, denies bleeding, and denies anemia, denies blood clots. Infections: The patient denies a history of measles and mumps, denies rheumatic fever, and denies sexually transmitted diseases. Musculoskeletal: The patient denies back pain/injury, denies back problems, denies sciatica, denies knee/foot trouble, denies arthritis, or denies gout. When was patient's last Mammogram screening? 2 years ago Last Colonoscopy: 2013 Martha Daniels PA-C PHYSICAL EXAMINATION: General: The patient is 56 year old female, well nourished, well hydrated in no acute distress. The patient is oriented to time, place, and person. VITALS: Blood pressure 148/78, pulse 80, weight 74.8 kg (165 lb). There is no height or weight on file to calculate BMI. HEENT: Normal cephalic, ataumatic, pupils are equally round, sclera are anicteric, mucous membranes are moist, oropharynx is clear. Neck has no masses, asymmetry or lymphadenopathy. Respiratory: Clear to auscultation and percussion. Normal respiratory excursion and pattern. Cardiac: Examination is regular rate and rhythm. Abdominal exam: Soft, nontender, with no palpable masses. No hepatosplenomegaly. No palpable hernias. Rectal exam: exam deferred Extremities: no clubbing, cyanosis or edema. No adenopathy. Other: LABORATORY VALUES: As Noted RADIOLOGIC STUDIES: As Noted Assessment IMPRESSION: encounter for high-risk screening colonoscopy, strong family history of colon cancer PLAN: We will plan for screening colonoscopy. We discussed the risks and benefits of the planned endoscopy. I have informed the patient that complications can occur including failure to complete the endoscopy and perforation. The patient had the opportunity to ask questions concerning the planned endoscopy. My staff has also explained the procedure to the patient in understandable terms and has given the patient printed material concerning the procedure. The patient freely consents to surgery. I plan to use golytely bowel preparation for endoscopy Diagnoses: (Z80.0) Family history of malignant neoplasm of gastrointestinal tract (primary encounter diagnosis) My findings have been communicated to Dr. Leone via shared medical record. This note will be forwarded to Dr. Flip Leone MD. Return to Clinic: The patient is instructed to follow-up with me 1 week post operatively. I spent 20 minutes in the visit, with more than 50% of the total [id number] time of the visit in counseling / coordination of care. Tyler Daniels PA-C BASIC METABOLIC Collected: 06/14/2017 Status: F Source: [place] PROFILE (BMP) 10:35 AM [facility] REPOSITORY TYPE CODE TESTS RESULT OUT OF RANGE REFERENCE UNITS LAB L501.0100 74-106 mg/dL Normal GLU 84 Result Comment: Please note revised GLUCOSE reference range effective 2017. LAB L501.1000 7-18 mg/dL Normal BUN 10 LAB L501.1100 0.55-1.02 mg/dL Normal CREAT,SERUM 0.67 Result Comment: The validity of the calculated GFR AND GFRAA in patients over 70 years has not been determined. Clinical correlation is essential. LAB L501.1110 >60 mL/min Normal EST GFR 96 Result Comment: Non- GFR Calc LAB L501.1115 >60 mL/min Normal EST GFR - AA 117 Result Comment: GFR Calc LAB L501.1300 10-20 RATIO Normal BUN/CRE 15.0 LAB L501.2200 8.5-10.1 mg/dL CA Normal 9.2 LAB L501.5300 136-145 mmol/L NA Normal 136 LAB L501.5600 3.5-5.1 mmol/L K Normal 3.9 LAB L501.5900 98-107 mmol/L CL Normal 99 LAB L501.6100 21.0-32.0 mmol/L Normal CO2 27.0 LAB L501.6200 5-15 Normal GAP 10 Performed By: #### L500.2500, L500.4100 #### [facility] [address] [place], [address] LIPID PROFILE Collected: 06/14/2017 Status: F Source: [place] 10:35 AM [facility] REPOSITORY TYPE CODE TESTS RESULT OUT OF RANGE REFERENCE UNITS LAB L501.4900 200 mg/dL Normal CHOL 193 Result Comment: <200 mg/dL Desirable 200-240 mg/dL Borderline >240 mg/dL High Risk LAB L501.5000 mg/dL High TRIG 304 Result Comment: The drugs N-Acetylcysteine and Metamizole may falsely depress this assay. Serum Triglycerides Reference Interval Normal <150 mg/dL Borderline high 150 - 199 mg/dL High 200 - 499 mg/dL Very High > or = 500 mg/dL LAB L501.6400 mg/dL Normal HDL 58 Result Comment: The drugs N-Acetylcysteine and Metamizole may falsely depress this assay. Reference Range HDL <40 mg/dL Low HDL Cholesterol HDL >or= 60 mg/dL High HDL Cholesterol LAB L501.6500 0-130 mg/dL Normal LDL 74 LAB L501.6600 5-40 mg/dL High VLDL 61 Performed By: #### L500.2500, L500.4100 #### [facility] [address] [place], [address] ALLERGIES ALLERGIES DATE TYPE / CODE NAME / CODE REACTION SEVERITY SOURCE Drug NO KNOWN [facility] Class/24714 ALLERGIES Main [place] 1003(SNOMED Repository CT) ENCOUNTERS ENCOUNTERS ADMIT/DISCHARGE ACCOUNT ADMITTING ENCOUNTER LOCATION SOURCE NUMBER CLASS 03/15/2018 [id number] [facility] ing:MFPLAB Repository 07/22/2017/07/23/19 [id number] Repository 07/05/2017 [id number] [facility] ing:BI Repository 06/28/2017/07/01/19 [id number] Ambulatory [address] Repository 06/14/2017 [id number] Ambulatory [facility] ing:MFPLAB Repository PAYERS PAYERS ENCOUNTER GUARANTOR PAYER SUBSCRIBER SOURCE 03/15/2018 Geo Leonardor348 Primary Geo LeeOB: Marsha N Bever Insurance:ANTHEMPolic [id number] [id number]: (330 [id number] Repository [phone] (HP) Date:[id number] [address], [place] [address]XF: 03/15/2018 Secondary NOT GIVENUNK Elizabeth Insurance:SELF PAY [facility] Number: Effective Repository Date:2018-03-15 07/05/2017 Geo Goncalves48 Primary Geo Tran JesusOB: Elizabeth N Bever Insurance:ANTHEMPolic [id number] [facility] [id number]: (330 [id number] Repository [phone] () Date:0555-44-09[address], [place] [address]ZU: 07/05/2017 Secondary NOT GIVENUNK Elizabeth Insurance:SELF PAY [facility] Number: Effective Repository Date:2017-06-14 06/14/2017 Geo Goncalves48 Primary Geo Tran JesusOB: Elizabeth N Bever Insurance:ANTHEMPolic [id number] [id number]: (330 [id number] Repository [phone] () Date:[id number] [address], [place] [address]CS: 06/14/2017 Secondary NOT GIVENUNK Marsha Insurance:SELF PAY [facility] Number: Effective Repository Date:2017-06-14
== END ==
PROVIDERS: Family Provider Family Medicine; PCP Family Medicine; Visit Provider Family Medicine
DX: E78.00 Pure hypercholesterolemia, unspecified (principal); E55.9 Vitamin D deficiency, unspecified
CPT/HCPCS: 36415; 80061; 82306

== ENCOUNTER → 2018-09-01 10:31 | Outpatient (CLI) | payer BC, SELFPAY ==
[2018-09-01 12:41] LABS: BUN 15 mg/dL (7-18); Creatinine, Serum 0.62 mg/dL (0.55-1.02); Glucose 100 mg/dL (74-106)
[2018-09-01 12:42] LABS: ALB/GLOB Ratio 1.3 RATIO (0.9-2.4); AST(SGOT) 20 U/L (15-37); Alanine Aminotransfer ALT/SGPT 36 U/L (13-56); Albumin, Serum 3.8 g/dL (3.2-5.0); Alkaline Phosphatase 65 U/L (45-117); Anion Gap 8 (5-15); BUN/Creat Ratio 24.3 RATIO (10-20); Calcium,Total 9.2 mg/dL (8.5-10.1); Chloride 104 mmol/L (98-107); Cholesterol 188 mg/dL (200); EST Glomerular Filtration Rate 105 mL/min (>60); Est Glom Filt Rate - Afr Amer 127 mL/min (>60); High Density Lipoprotein 67 mg/dL; Potassium 4.4 mmol/L (3.5-5.1); Protein, Total 6.8 g/dL (6.4-8.2); Sodium Level 140 mmol/L (136-145); Triglycerides 189 mg/dL; Very Low Density Lipoprotein 38 mg/dL (5-40)
[2018-09-01 12:49] LABS: Microalbumin,Random Urine 6.3 mg/L (NO RANGE EST.); Microalbumin:Creatinine Ratio 8.1 mg/g CRE (<30 mg/g CRE); Vitamin D,25 Hydroxy 31.6 ng/mL (29.95-100.01)
== END ==
PROVIDERS: Family Provider Family Medicine; PCP Family Medicine; Referring Provider Family Medicine; Visit Provider Family Medicine
DX: I10 Essential (primary) hypertension (principal); E78.00 Pure hypercholesterolemia, unspecified; E55.9 Vitamin D deficiency, unspecified
CPT/HCPCS: 36415; 80053; 80061; 82043; 82306; 82570

== ENCOUNTER → 2019-03-02 10:32 | Outpatient (CLI) | payer BC, SELFPAY ==
[2019-03-02 12:29] LABS: Anion Gap 6 (5-15); BUN 15 mg/dL (7-18); Calcium,Total 9.2 mg/dL (8.5-10.1); Chloride 104 mmol/L (98-107); Creatinine, Serum 0.65 mg/dL (0.55-1.02); EST Glomerular Filtration Rate 98 mL/min (>60); Est Glom Filt Rate - Afr Amer 119 mL/min (>60); Glucose 93 mg/dL (74-106); Potassium 4.5 mmol/L (3.5-5.1); Sodium Level 138 mmol/L (136-145)
== END ==
PROVIDERS: Family Provider Family Medicine; PCP Family Medicine; Referring Provider Family Medicine; Visit Provider Family Medicine
DX: I10 Essential (primary) hypertension (principal)
CPT/HCPCS: 36415; 80048

== ENCOUNTER → 2019-05-29 12:47 | Outpatient (CLI) | payer BC, SELFPAY ==
[2019-05-29 13:42] LABS: Absolute Lymphocyte Count 1.34 X10^3/uL (0.83-4.51); Absolute Neutrophil Count 7.7 X10^3/uL (2.0-7.7); Basophil# 0.04 X10^3/uL; Basophil% 0.4 % (0-1); Hematocrit 42.2 % (37-47); Hemoglobin 14.4 g/dL (12.0-15.0); Lymphocyte # 1.34 X10^3/ul (4.0); Mean Corp Hgb Conc 34.1 g/dL (32-36); Mean Corpuscular Hgb 30.4 pg (27.0-32.0); Mean Corpuscular Volume 89.2 fL (81-99); Mean Platelet Vol. 8.6 fl (6.2-12.0); Monocyte# 0.41 X10^3/uL; Monocyte% 4.3 % (0-10); NRBC Flagged by Analyzer 0 % (0-5); Neutrophil # 7.73 X10^3/uL (2.7-7.7); Neutrophil % 80.9 % (47-70); Platelet Count 287 K/mm3 (150-450); RBC Distribution Width CV 11.9 % (11.6-14.6); Red Blood Count 4.73 M/mm3 (4.2-5.4); White Blood Count 9.6 K/mm3 (4.4-11.0)
[2019-05-29 14:14] LABS: ALB/GLOB Ratio 1.1 RATIO (0.9-2.4); AST(SGOT) 17 U/L (15-37); Alanine Aminotransfer ALT/SGPT 45 U/L (13-56); Albumin, Serum 3.9 g/dL (3.2-5.0); Alkaline Phosphatase 56 U/L (45-117); Anion Gap 6 (5-15); BUN 13 mg/dL (7-18); CRP < 2.90 mg/L (0.0-3.0); Calcium,Total 9.4 mg/dL (8.5-10.1); Chloride 101 mmol/L (98-107); Creatinine, Serum 0.65 mg/dL (0.55-1.02); EST Glomerular Filtration Rate 99 mL/min (>60); Est Glom Filt Rate - Afr Amer 120 mL/min (>60); Globulin 3.7 g/dL (2.2-4.2); Glucose 118 mg/dL (74-106); Lipase 66 U/L (73-393); Potassium 3.7 mmol/L (3.5-5.1); Protein, Total 7.6 g/dL (6.4-8.2); Sodium Level 137 mmol/L (136-145)
== END ==
PROVIDERS: PCP Family Medicine; Referring Provider Family Medicine; Visit Provider Family Medicine
DX: R10.13 Epigastric pain (principal)
CPT/HCPCS: 36415; 80053; 83690; 85025; 86140

== ENCOUNTER → 2019-05-31 | Outpatient (CLI) | payer BC, SELFPAY ==
[2019-06-03 12:41] LABS: H. PYLORI STOOL AG Negative (Negative)
== END | disposition home or self-care (01) ==
LOC: LABSPEC 07:41
PROVIDERS: PCP Family Medicine; Referring Provider Family Medicine; Visit Provider Family Medicine
DX: R13.10 Dysphagia, unspecified (principal)

== ENCOUNTER → 2019-09-13 13:34 | Outpatient (CLI) | payer BC, SELFPAY ==
--- NOTE | 2019-09-13 13:42 | BI_ITS ---
MAMMOGRAPHY - BILATERAL SCREENING REASON FOR EXAM: Female, 58 years old. Routine annual screening examination. PERTINENT HISTORY: Non-contributory. TECHNIQUE: Digital bilateral breast scarlet (3D mammographic acquisition) in the CC and MLO projections. 2-D mediolateral oblique (MLO) and craniocaudad (CC) views of both breasts were obtained. CAD: Full Field Digital Mammography with Computer Added Detection was performed. COMPARISON: Comparison is made with prior examination dated July 05, 2017 and May 29, 2015. FINDINGS: Breast Composition: There are scattered areas of fibroglandular density. There are no dominant masses or suspicious calcifications. No other significant abnormalities are identified. There has been no significant change since the prior study. BI/SCREEN MAMM (CAD) W/SCARLET BILAT IMPRESSION: Stable bilateral screening mammogram. Yearly follow-up mammogram recommended. (A) ASSESSMENT CATEGORY: BIRADS Category 1: Negative. A letter regarding these results will be sent to the patient by the facility within 30 days. Approximately 10% of breast cancers are not detected by mammography. A normal mammogram should not delay biopsy of a clinically suspicious abnormality. [id number] Electronically Signed: Shane George, at 14:24 EDT , Service support ,
== END ==
PROVIDERS: PCP Family Medicine; Referring Provider Family Medicine; Visit Provider Family Medicine
DX: Z12.31 Encounter for screening mammogram for malignant neoplasm of breast (principal)
CPT/HCPCS: 77063; 77067

== ENCOUNTER → 2020-03-04 09:54 | Outpatient (CLI) | payer BC, SELFPAY ==
[2020-03-04 12:55] LABS: Vitamin D,25 Hydroxy 37.3 ng/mL
[2020-03-04 13:15] LABS: ALB/GLOB Ratio 1.2 RATIO (0.9-2.4); AST(SGOT) 34 U/L (15-37); Alanine Aminotransfer ALT/SGPT 56 U/L (13-56); Albumin, Serum 3.8 g/dL (3.2-5.0); Alkaline Phosphatase 71 U/L (45-117); Anion Gap 5 (5-15); BUN 12 mg/dL (7-18); BUN/Creat Ratio 17.3 RATIO (10-20); Calcium,Total 9.1 mg/dL (8.5-10.1); Chloride 107 mmol/L (98-107); Cholesterol 232 mg/dL (200); Creatinine, Serum 0.69 mg/dL (0.55-1.02); EST Glomerular Filtration Rate 92 mL/min (>60); Est Glom Filt Rate - Afr Amer 111 mL/min (>60); Globulin 3.2 g/dL (2.2-4.2); Glucose 101 mg/dL (74-106); High Density Lipoprotein 78 mg/dL; Potassium 3.7 mmol/L (3.5-5.1); Sodium Level 139 mmol/L (136-145); Triglycerides 298 mg/dL; Very Low Density Lipoprotein 60 mg/dL (5-40)
== END ==
PROVIDERS: PCP Family Medicine; Referring Provider Family Medicine; Visit Provider Family Medicine
DX: I10 Essential (primary) hypertension (principal); E78.1 Pure hyperglyceridemia; E55.9 Vitamin D deficiency, unspecified
CPT/HCPCS: 36415; 80053; 80061; 82306

== ENCOUNTER → 2021-01-22 10:20 | Outpatient (CLI) | payer BC, SELFPAY ==
[2021-01-22 12:38] LABS: AST(SGOT) 38 U/L (15-37); Alanine Aminotransfer ALT/SGPT 67 U/L (13-56); Albumin, Serum 3.6 g/dL (3.2-5.0); Alkaline Phosphatase 74 U/L (45-117); Anion Gap 7 (5-15); BUN 14 mg/dL (7-18); BUN/Creat Ratio 20.5 RATIO (10-20); Chloride 103 mmol/L (98-107); Cholesterol 201 mg/dL (200); Creatinine, Serum 0.68 mg/dL (0.55-1.02); EST Glomerular Filtration Rate 93 mL/min (>60); Est Glom Filt Rate - Afr Amer 112 mL/min (>60); Globulin 3.7 g/dL (2.2-4.2); Glucose 94 mg/dL (74-106); High Density Lipoprotein 73 mg/dL; Potassium 4.3 mmol/L (3.5-5.1); Protein, Total 7.3 g/dL (6.4-8.2); Sodium Level 137 mmol/L (136-145); Triglycerides 284 mg/dL; Very Low Density Lipoprotein 57 mg/dL (5-40)
[2021-01-22 13:24] LABS: Microalbumin,Random Urine 6.6 mg/L (NO RANGE EST.); Microalbumin:Creatinine Ratio 10.3 mg/g CRE (<30 mg/g CRE)
== END ==
PROVIDERS: PCP Family Medicine; Referring Provider Family Medicine; Visit Provider Family Medicine
DX: I10 Essential (primary) hypertension (principal); E78.00 Pure hypercholesterolemia, unspecified; R74.8 Abnormal levels of other serum enzymes
CPT/HCPCS: 36415; 80053; 80061; 82043; 82570

== ENCOUNTER → 2021-01-28 06:59 | Outpatient (CLI) | payer BC, SELFPAY ==
[2021-01-28 10:21] LABS: Hepatitis C Antibody Non-Reactive (Nonreactive)
== END ==
PROVIDERS: PCP Family Medicine; Referring Provider Family Medicine; Visit Provider Family Medicine
DX: R74.8 Abnormal levels of other serum enzymes (principal)
CPT/HCPCS: 36415; 86803

== ENCOUNTER 2021-07-24 08:30 | Outpatient (CLI) | payer BC, SELFPAY ==
[2021-07-24 11:02] LABS: ALB/GLOB Ratio 1.2 RATIO (0.9-2.4); AST(SGOT) 55 U/L (15-37); Alanine Aminotransfer ALT/SGPT 86 U/L (13-56); Albumin, Serum 3.6 g/dL (3.2-5.0); Alkaline Phosphatase 65 U/L (45-117); Anion Gap 6 (5-15); BUN 16 mg/dL (7-18); BUN/Creat Ratio 23.3 RATIO (10-20); Calcium,Total 8.9 mg/dL (8.5-10.1); Chloride 107 mmol/L (98-107); Creatinine, Serum 0.69 mg/dL (0.55-1.02); EST Glomerular Filtration Rate 92 mL/min (>60); Est Glom Filt Rate - Afr Amer 111 mL/min (>60); GGTP 109 U/L (5-55); Glucose 98 mg/dL (74-106); Potassium 4.3 mmol/L (3.5-5.1); Protein, Total 6.6 g/dL (6.4-8.2); Sodium Level 138 mmol/L (136-145)
== END 2021-07-24 23:59 | disposition home or self-care (01) ==
LOC: MFPLAB 08:33
PROVIDERS: PCP Family Medicine; Referring Provider Family Medicine; Visit Provider Family Medicine
DX: I10 Essential (primary) hypertension (principal); R74.8 Abnormal levels of other serum enzymes
CPT/HCPCS: 36415; 80053; 82977

== ENCOUNTER → 2021-08-03 | Outpatient (CLI) | payer BC, SELFPAY ==
[2021-08-03 08:45] LABS: Hepatitis C Antibody Non-Reactive (Nonreactive)
[2021-08-04 17:41] LABS: Anti-Smooth Muscle ABS 4 Units (0-19)
== END | disposition home or self-care (01) ==
LOC: LAB 06:56
PROVIDERS: PCP Family Medicine; Referring Provider Registered Nurse; Visit Provider Registered Nurse
DX: R74.8 Abnormal levels of other serum enzymes (principal)
CPT/HCPCS: 36415; 83516; 86803

== ENCOUNTER → 2021-11-16 | Outpatient (CLI) | payer BC, SELFPAY ==
[2021-11-16 10:06] LABS: Absolute Lymphocyte Count 1.86 X10^3/uL (0.83-4.51); Absolute Neutrophil Count 3.1 X10^3/uL (2.0-7.7); Basophil# 0.05 X10^3/uL; Basophil% 0.9 % (0-1); Eosinophil# 0.16 X10^3/uL; Eosinophils% 2.9 % (0-5); Hematocrit 37.8 % (37-47); Hemoglobin 12.6 g/dL (12.0-15.0); Lymphocyte # 1.86 X10^3/ul (0.83-4.51); Lymphocyte % 33.2 % (19-41); Mean Corp Hgb Conc 33.3 g/dL (32-36); Mean Corpuscular Hgb 30.3 pg (27.0-32.0); Mean Corpuscular Volume 90.9 fL (81-99); Monocyte# 0.47 X10^3/uL; Monocyte% 8.4 % (0-10); NRBC Flagged by Analyzer 0 % (0-5); Neutrophil # 3.05 X10^3/uL (2.7-7.7); Neutrophil % 54.4 % (47-70); Platelet Count 268 K/mm3 (150-450); RBC Distribution Width CV 12.2 % (11.6-14.6); RBC Distribution Width SD 40.8 fl (35.1-43.9); Red Blood Count 4.16 M/mm3 (4.2-5.4); White Blood Count 5.6 K/mm3 (4.4-11.0)
[2021-11-16 10:24] LABS: ALB/GLOB Ratio 0.8 RATIO (0.9-2.4); AST(SGOT) 50 U/L (15-37); Alanine Aminotransfer ALT/SGPT 89 U/L (13-56); Alkaline Phosphatase 94 U/L (45-117); Anion Gap 4 (5-15); BUN 14 mg/dL (7-18); BUN/Creat Ratio 21.5 RATIO (10-20); Calcium,Total 9.5 mg/dL (8.5-10.1); Chloride 105 mmol/L (98-107); Creatinine, Serum 0.65 mg/dL (0.55-1.02); EST Glomerular Filtration Rate 98 mL/min (>60); Est Glom Filt Rate - Afr Amer 118 mL/min (>60); GGTP 154 U/L (5-55); Glucose 105 mg/dL (74-106); Lipase 67 U/L (73-393); Potassium 4.1 mmol/L (3.5-5.1); Sodium Level 139 mmol/L (136-145)
== END | disposition home or self-care (01) ==
LOC: MFPLAB 08:32
PROVIDERS: PCP Family Medicine; Visit Provider Family Medicine
DX: R10.13 Epigastric pain (principal)
CPT/HCPCS: 36415; 80053; 82977; 83690; 85025; 86140

== ENCOUNTER → 2021-11-24 | Outpatient (CLI) | payer BC, SELFPAY ==
--- NOTE | 2021-11-24 06:45 | CT_ITS ---
STUDY: CT ABDOMEN WITH CONTRAST REASON FOR EXAM: Female, 61 years old. Umbilical and epigastric pain w/ elevated transaminases. ? herniae RADIATION DOSAGE (If Supplied By Facility): CTDIvol = ( 12.61 ) mGy, DLP = ( 522.50 ) mGycm TECHNIQUE: Transaxial images were obtained post I.V. administration of Oral and amp; IV Readi-CAT and amp; 100mL Isovue-370, and with oral contrast. Sagittal and coronal images were reconstructed. Individualized dose optimization techniques were used for this CT. COMPARISON: None. FINDINGS: There is a pectus excavatum deformity. The visualized portions of the heart are within normal limits. There is decreased attenuation of the liver consistent with steatosis. There is a 6.8 mm cyst in the posterior aspect of the right lobe of the liver superiorly. Normal gallbladder and extrahepatic biliary system. Normal spleen. Normal pancreas. Normal bilateral adrenal glands. There are bilateral parapelvic cysts. Normal visualized stomach. Normal small intestine. Normal colon. The appendix is visualized and appears normal. Normal abdominal aorta. Normal inferior vena cava. Normal retroperitoneum. There is a small umbilical hernia containing fat. There are degenerative changes of the visualized lumbar spine. CT/Abdomen WITH IV Contrast IMPRESSION: Fatty infiltration of the liver. Small hepatic cyst. Bilateral parapelvic renal cysts. Small umbilical hernia containing fat. Electronically Signed: Shane George MD at 10:54 EDT ,
== END | disposition home or self-care (01) ==
PROVIDERS: PCP Family Medicine; Visit Provider Family Medicine
DX: R10.13 Epigastric pain (principal); R10.33 Periumbilical pain; R74.01 Elevation of levels of liver transaminase levels
CPT/HCPCS: 74160; Q9967

== ENCOUNTER → 2021-12-10 | Outpatient (CLI) | payer BC, SELFPAY ==
[2021-12-10 09:33] LABS: AST(SGOT) 48 U/L (15-37); Alanine Aminotransfer ALT/SGPT 66 U/L (13-56); Albumin, Serum 3.4 g/dL (3.2-5.0); Alkaline Phosphatase 74 U/L (45-117); Bilirubin, Direct 0.12 mg/dL (0.00-0.30); CRP < 2.90 mg/L (0.0-3.0); Globulin 3.4 g/dL (2.2-4.2); Protein, Total 6.8 g/dL (6.4-8.2)
== END | disposition home or self-care (01) ==
LOC: PAVLAB 08:41
PROVIDERS: PCP Family Medicine; Referring Provider Surgery; Visit Provider Surgery
DX: R10.9 Unspecified abdominal pain (principal); R74.8 Abnormal levels of other serum enzymes
CPT/HCPCS: 36415; 80076; 86140

== ENCOUNTER → 2021-12-15 | Outpatient (CLI) | payer BC, SELFPAY ==
--- NOTE | 2021-12-15 06:44 | MRI_ITS ---
EXAM: MR ABDOMEN WITHOUT INTRAVENOUS CONTRAST, MRCP PROTOCOL CLINICAL INDICATION: ELEVATED LIVER LABS WITH CRP TECHNIQUE: Multiplanar and multisequence MR images of the abdomen without intravenous contrast obtained with MRCP sequence. Three-dimensional post-processing reconstructions were performed. This report was created using [employer] report generation technology. COMPARISON: Abdominal ultrasound 12/15/2021, CT abdomen and pelvis November 24, 2021 FINDINGS: LOWER THORAX: Normal. No pleural effusion. LIVER: 9 mm lesion within hepatic segment 7 consistent with a hepatic cyst. No follow-up is necessary. GALLBLADDER AND BILE DUCTS: Common bile duct measures 6 mm in maximum diameter. No gallstones. No gallbladder distention or wall edema. PANCREAS: Visualized portions of the pancreatic duct are normal. No focal cystic mass. SPLEEN: Normal. Non-enlarged. ADRENALS: Normal. No nodules. KIDNEYS AND URETERS: Parapelvic renal cysts are noted. No specific follow-up indicated. No hydronephrosis. INTRAPERITONEAL SPACE: Normal. No ascites or other fluid collection. VASCULATURE: Normal. Abdominal aorta is non-dilated. LYMPH NODES: No enlarged lymph nodes. MRI/MRCP Abdomen without Contrast IMPRESSION: Normal MRCP. Electronically Signed: Mariusz Beatty MD at 10:43 EDT ,
--- NOTE | 2021-12-15 07:28 | US_ITS ---
STUDY: ABDOMINAL ULTRASOUND - RIGHT UPPER QUADRANT REASON FOR VISIT: Female, 61 years old Abdominal pain TECHNIQUE: Ultrasound evaluation of the right upper quadrant was performed with real-time and static cadet-scale imaging. TECHNICAL QUALITY: Adequate. COMPARISON: None. FINDINGS: Liver: The liver measures 16.4 cm. There is increased echogenicity consistent with fatty infiltration. The bile ducts are within normal limits. There is hepatic color flow. The direction of portal flow is hepatopetal. There is no demonstrated mass lesion. Gallbladder: Normal distended gallbladder. The gallbladder wall measures 1.3 mm. There is a negative sonographic Ramirez''s sign. There is no pericholecystic fluid. There are no gallstones. Common Bile Duct (C.B.D.): The common bile duct measures 4.2 mm. Pancreas: Normal size of the head, body of the pancreas. The tail portion is obscured due to overlying bowel gas. There is normal echogenicity of the pancreas. There is no demonstrated pancreatic mass or cyst. Right Kidney: Normal size of the right kidney. The right kidney measures 10.7 cm x 6.3 cm x 6.3 cm. Normal renal cortex. The right cortex measures 1.8 cm. There is a 2.3 cm x 1.1 cm by 1.3 cm parapelvic cyst. There is no right hydronephrosis. US/Gallbladder IMPRESSION: Fatty infiltration of the liver. Right parapelvic renal cysts. Electronically Signed: Shane George MD at 10:40 EDT ,
== END | disposition home or self-care (01) ==
PROVIDERS: PCP Family Medicine; Referring Provider Surgery; Visit Provider Surgery
DX: R10.9 Unspecified abdominal pain (principal); R74.8 Abnormal levels of other serum enzymes
CPT/HCPCS: 74181; 76705

== ENCOUNTER → 2022-09-09 | Outpatient (CLI) | payer BC, SELFPAY ==
[2022-09-09 10:25] LABS: Microalbumin,Random Urine 6.8 mg/L (NO RANGE EST.); Microalbumin:Creatinine Ratio 9.2 mg/g CRE (<30 mg/g CRE)
[2022-09-09 11:07] LABS: AST(SGOT) 41 U/L (15-37); Alanine Aminotransfer ALT/SGPT 46 U/L (13-56); Albumin, Serum 3.3 g/dL (3.2-5.0); Alkaline Phosphatase 73 U/L (45-117); Anion Gap 5 (5-15); BUN 14 mg/dL (7-18); BUN/Creat Ratio 21.2 RATIO (10-20); Calcium,Total 8.6 mg/dL (8.5-10.1); Chloride 109 mmol/L (98-107); Cholesterol 240 mg/dL (200); Creatinine, Serum 0.66 mg/dL (0.55-1.02); EST Glomerular Filtration Rate 96 mL/min (>60); Est Glom Filt Rate - Afr Amer 116 mL/min (>60); Globulin 3.4 g/dL (2.2-4.2); Glucose 99 mg/dL (74-106); High Density Lipoprotein 56 mg/dL; Potassium 4.2 mmol/L (3.5-5.1); Protein, Total 6.7 g/dL (6.4-8.2); Sodium Level 139 mmol/L (136-145); Triglycerides 700 mg/dL
== END | disposition home or self-care (01) ==
LOC: MTLAB 08:28
PROVIDERS: PCP Family Medicine; Referring Provider Family Medicine; Visit Provider Family Medicine
DX: R74.01 Elevation of levels of liver transaminase levels (principal); I10 Essential (primary) hypertension; E78.00 Pure hypercholesterolemia, unspecified
CPT/HCPCS: 36415; 80053; 80061; 82043; 82570

== ENCOUNTER → 2023-03-18 | Outpatient (CLI) | payer BC, SELFPAY ==
[2023-03-18 12:43] LABS: Microalbumin,Random Urine 14.9 mg/L (NO RANGE EST.); Microalbumin:Creatinine Ratio 14.9 mg/g CRE (<30 mg/g CRE)
[2023-03-18 13:29] LABS: ALB/GLOB Ratio 1.1 RATIO (0.9-2.4); AST(SGOT) 39 U/L (15-37); Alanine Aminotransfer ALT/SGPT 75 U/L (13-56); Albumin, Serum 3.8 g/dL (3.2-5.0); Alkaline Phosphatase 82 U/L (45-117); Anion Gap 7 (5-15); BUN 14 mg/dL (7-18); Calcium,Total 8.9 mg/dL (8.5-10.1); Chloride 104 mmol/L (98-107); Cholesterol 194 mg/dL (200); EST Glomerular Filtration Rate 90 mL/min (>60); Est Glom Filt Rate - Afr Amer 108 mL/min (>60); Globulin 3.4 g/dL (2.2-4.2); Glucose 98 mg/dL (74-106); High Density Lipoprotein 65 mg/dL; Potassium 4.3 mmol/L (3.5-5.1); Protein, Total 7.2 g/dL (6.4-8.2); Sodium Level 137 mmol/L (136-145); Triglycerides 443 mg/dL
[2023-03-23 04:07] LABS: LDL, Direct 120295 78 mg/dL (0-99)
== END | disposition home or self-care (01) ==
LOC: MFPLAB 09:53
PROVIDERS: PCP Family Medicine; Visit Provider Family Medicine
DX: I10 Essential (primary) hypertension (principal); E78.1 Pure hyperglyceridemia
CPT/HCPCS: 36415; 80053; 80061; 82043; 82570; 83721

== ENCOUNTER → 2023-03-28 | Outpatient (CLI) | payer BC, SELFPAY ==
--- NOTE | 2023-03-28 07:04 | BI_ITS ---
MAMMOGRAPHY - BILATERAL SCREENING REASON FOR EXAM: Female, 62 years old. Routine annual screening examination. PERTINENT HISTORY: Non-contributory. TECHNIQUE: Digital bilateral breast scarlet (3D mammographic acquisition) in the CC and MLO projections. 2-D mediolateral oblique (MLO) and craniocaudad (CC) views of both breasts were obtained. CAD: Full Field Digital Mammography with Computer Added Detection was performed. COMPARISON: Comparison is made with prior study September 13, 2019 and July 05, 2017. FINDINGS: Breast Composition: There are scattered areas of fibroglandular density. There are no dominant masses or suspicious calcifications. Stable small benign-appearing bilateral axillary lymph nodes. No other significant abnormalities are identified. There has been no significant change since the prior study. BI/SCRN MAMM (CAD)W/SCARLET BILAT IMPRESSION: Stable bilateral screening mammogram. Yearly follow-up mammogram recommended. (A) ASSESSMENT CATEGORY: BIRADS Category 2: Benign. A letter regarding these results will be sent to the patient by the facility within 30 days. Approximately 10% of breast cancers are not detected by mammography. A normal mammogram should not delay biopsy of a clinically suspicious abnormality. [id number] Electronically Signed: Shane George MD at 8:47 EST ,
== END | disposition home or self-care (01) ==
LOC: OPBI 07:04
PROVIDERS: PCP Family Medicine; Referring Provider Family Medicine; Visit Provider Family Medicine
DX: Z12.31 Encounter for screening mammogram for malignant neoplasm of breast (principal)
CPT/HCPCS: 77063; 77067

== ENCOUNTER → 2023-05-04 | Outpatient (CLI) | payer BC, SELFPAY ==
--- NOTE | 2023-05-04 07:23 | US_ITS ---
STUDY: ABDOMINAL ULTRASOUND - ELASTOGRAPHY REASON FOR VISIT: Female, 62 years old. Elevated liver enzymes. TECHNIQUE: Liver stiffness measurements were obtained on a [place] RS 85 ultrasound machine using a CA 1-7 probe following the U guidelines. 3 measurements were obtained using a 2-D-SWE method. TheIQR/M was 21% suggesting a quality data set. TECHNICAL QUALITY: Adequate. COMPARISON: None. FINDINGS: Liver: Fatty infiltration of the liver. Median liver stiffness measured 7.9 kPa. Abdomen: There is no demonstrated mass lesion. US/Elastography Parenchyma/Organ IMPRESSION: Liver stiffness measures 7.9 kPa compatible with F2-F3 (Mild to moderate liver fibrosis) Metavir score. Electronically Signed: Shane George MD at 8:29 EST ,
--- NOTE | 2023-05-04 07:23 | US_ITS ---
STUDY: ABDOMINAL ULTRASOUND - RIGHT UPPER QUADRANT REASON FOR VISIT: Female, 62 years old elevated liver enzymes TECHNIQUE: Ultrasound evaluation of the right upper quadrant was performed with real-time and static cadet-scale imaging. TECHNICAL QUALITY: Adequate. COMPARISON: Comparison is made with prior study December 15, 2021. FINDINGS: Liver: The liver measures 16.6 cm. There is increased echogenicity consistent with fatty infiltration. The bile ducts are within normal limits. There is hepatic color flow. The direction of portal flow is hepatopetal. There is no demonstrated mass lesion. Gallbladder: Normal distended gallbladder. The gallbladder wall measures 2.8 mm. There is a negative sonographic Ramirez''s sign. There is no pericholecystic fluid. There are no gallstones. Common Bile Duct (C.B.D.): The common bile duct measures 4.6 mm. Pancreas: Normal size of the head, body of the pancreas. The tail portion is obscured due to overlying bowel gas. There is normal echogenicity of the pancreas. There is no demonstrated pancreatic mass or cyst. Right Kidney: Normal size of the right kidney. The right kidney measures 11.2 cm x 5.3 cm x 6.4 cm. Normal renal cortex. The right cortex measures 1.2 cm. There is a 1 cm x 1.2 cm x 0.9 cm right parapelvic cyst. There is no right hydronephrosis. US/Abdomen Limited IMPRESSION: Fatty infiltration of the liver. Right parapelvic renal cyst. Stable examination. Electronically Signed: Shane George MD at 8:37 EST ,
--- OUTSIDE RECORDS SUMMARY | 2023-05-04 07:24 | XMS RPT_ITS | CCD ---
Author Name Unknown Address [address] [place] [address] Organization [facility] Care Team Providers Care Weights And Measures Inspector Name Role Phone Flip Leone MD Primary Care Provider [phone] FLIP LEONE Primary Care Unavailable TYLER DANIELS Attending Unavailable NÉSTOR DUMONT Referring Unavailable TYLER DANIELS Referring Unavailable NÉSTOR DUMONT Attending Unavailable FLIP LEONE Primary Care Unavailable TYLER DANIELS Attending Unavailable FLIP LEONE Referring Unavailable FLIP LEONE Primary Care Unavailable Medications Completed/Discontinued Medications Medication Drug Class(es) Dates Sig (Normalized) Sig (Original) CALCIUM PHOSPHATE DIBAS/VIT D3 (VITAMIN D, WITH CALCIUM, ORAL) (1 source) CALCIUM PHOSPHAT E DIBAS/VIT D3 (VITAMIN D, WITH CALCIUM, ORAL) Take by mouth. 0 Active Problems Problem Classification Problem Date Documented Date Episodic/Chronic Disorders of lipid metabolism (1 source) Mixed hyperlipidemia; Translations: [Mixed hyperlipidemia] 07-17-2009 Chronic Diverticulosis and diverticulitis (1 source) Diverticular disease; Translations: [Diverticulosis of intestine, part unspecified, without perforation or abscess without bleeding] 10-28-2022 Chronic Other and unspecified benign neoplasm (1 source) Tubular adenoma ; Translations: [Benign neoplasm, unspecified site] 10-28-2022 Episodic Other screening for suspected conditions (not mental disorders or infectious disease) (1 source) Encounter for screening for malignant neoplasm of colon; Translations: [Encounter for screening for malignant neoplasm of colon] Onset: 09-27-2022 Episodic Residual codes; unclassified (2 sources) Family history of cancer of colon; Translations: [Family history of malignant neoplasm of digestive organs] Onset: 07-21-2009 10-28-2022 Episodic Residual codes; unclassified (2 sources) Family history of malignant neoplasm of digestive organs; Translations: [Family history of malignant neoplasm of gastrointestinal tract] Onset: 07-21-2009 Episodic Results Test Name Value Interpretation Reference Range Facil ity Vital Signs Date Time Vital Sign Value Performing Clinician Maximo lolly 10-28-2022 07:53-0400 Body height 170.2 cm Tyler Jeremiah PA-C Work Phone: [facility] 10-28-2022 07:53-0400 Body temperature 97.81 [degF] Tyler Tunkhannock PA-C Work Phone: [facility] 10-28-2022 07:53-0400 Body weight 72.85 kg Tyler Jeremiah PA-C Work Phone: [facility] 10-28-2022 07:53-0400 Diastolic blood pressure 78 mm[Hg] Tyler Tunkhannock PA-C Work Phone: [facility] 10-28-2022 07:53-0400 Heart rate 77 /min Tyler Tunkhannock PA-C Work Phone: [facility] 10-28-2022 07:53-0400 SaO2% (BldA) [Mass fraction] 96 % Tyler Tunkhannock PA-C Work Phone: [facility] 10-28-2022 07:53-0400 Systolic blood pressure 150 mm[Hg] Tyler Tunkhannock PA-C Work Phone: [facility] Encounters Encounter Date Encounter Type Care Provider Facility Start: 10-28-2022 End: 10-28-2022 ambulatory FLIP LEONE Facility:[facility] Start: 10-28-2022 End: 10-28-2022 Patient encounter procedure Tyler Tunkhannock PA-C Work Phone: General Surgery Procedures Date Procedure Procedure Detail Performing Clinician Start: 10-15-2022 Colonoscopy Tyler Gra f PA-C Work Phone: Plan of Treatment Date Care Activity Detail Author Start: 10-16-[address] [facility] Start: 10-16-2027 COLORECTAL CANCER SCREENING COLORECTAL CANCER SCREENING [facility] Start: 12-17-2022 Influenza vaccination INFLUENZA (#1) [facility] Start: 04-18-2022 DEPRESSION ASSESSMENT DEPRESSION ASS ESSMENT [facility] Start: 06-30-2021 COVID-19 VACCINE (4 - Pfizer series) COVID-19 VACCINE (4 - Pfizer series) [facility] Start: 2008 SHINGRIX VACCINE (1 of 2) SHINGRIX V ACCINE (1 of 2) [facility] Start: 11-10-2003 COLOGUARD (FIT-DNA) COLOGUARD (FIT-D NA) [facility] Start: 11-10-[address] COLONOGRAPHY [facility] Start: 11-10-2003 DIABETES SCREEN DIABETES SCREEN [facility] Start: 11-10-2003 FECAL OCCULT BLOOD FECAL OCCULT BLOO D [facility] Start: 11-10-2003 LIPID SCREEN LIPID SCREEN [facility] Start: 11-10-2003 SIGMOIDOSCOPY SIGMOIDOSCOPY [facility] Start: 1998 [address] [facility] Start: 1988 HPV TESTING HPV TESTING [facility] Start: 11-10-1979 PAP TESTING PAP TESTING [facility] Start: 1977 Urine microalbumin profile DTAP,TDAP ,TD (1 - Tdap) [facility] Start: 1976 HEPATITIS C SCREENING HEPATITIS C SC REENING [facility] Start: 1976 HIV SCREENING HIV SCREENING [facility] Payers Date Payer Category Payer Unknown [employer] PPO [id number] 2021-Present [phone] [facility] [id number] [place] [address] PPO [id number] 2021 Unknown [id number] Social History Date Type Detail Facility Start: 09-27-2022 Tobacco smoking stat us NHIS Never smoked tobacco [facility] Start: 09-27-2022 Tobacco use and exposure Smoke less tobacco non-user [facility] Start: 10-28-2022 Alcohol intake Current drinke r of alcohol (finding) [facility] Start: 03-23-2020 End: 10-28-[address] [facility] Start: 03-23-2020 End: 10-28-2022 Tobacco use panel [facility] National Score (1-10 0), lower number is lower risk Not on file [facility] Start: 07-22-2017 [facility] Start: 1960 [facility] 10-28-2022 Note Date & Type Note Facility 10-28-2022 Note HNO ID: [id number] Author: Tyler Daniels PA-C Service: ? Author Type: Physician Glass Setter Type: Progress Notes Filed: 10/29/2022 2:45 PM Note Text: FOLLOW UP VISIT - ENDOSCOPY NAME: Geo Polanco [facility] NO.: [id number] DATE OF SERVICE: 10/28/2022 : 1960 REFERRING PHYSICIAN: Flip Leone MD Geo is a patient I am following for family history of colon cancer and need for high-risk surveillance colonoscopy. Dr. Dumont performed lower endoscopy on 10/15/22. The patient was found to have non-bleeding internal hemorrhoids, sigmoid diverticulosis, and a small sigmoid colon polyp which was removed. Pathology demonstrated: FINAL DIAGNOSIS Sigmoid colon polyp, biopsy: - Tubular adenoma. JEL 10/18/2022 The patient notes no complaints since the procedure. VITALS: Blood pressure 150/78, pulse 77, temperature 36.6 ?C (97.8 ?F), height 170.2 cm (5' 7 ), weight 72.8 kg (160 lb 9.6 oz), SpO2 96 %. General: patient is alert, cooperative, pleasant and in no acute distress On examination, the abdomen is benign. Assessment IMPRESSION: s/p colonoscopy with polypectomy, tubular adenoma PLAN: The operative findings and pathology report were reviewed with the patient, and the patient has had the opportunity to ask questions and have questions answered. If the patient notes any problems or changes in bowel function, the patient should contact me immediately. Otherwise I recommend follow up colonoscopy in 5 years Patient verbalized understanding of all above and agreed with the plan Diagnoses: (Z80.0) Family history of colon cancer (primary encounter diagnosis) (D36.9) Tubular adenoma (K57.90) Diverticulosis I spent a total of 22 minutes on the date of the service which included preparing to see the patient, [id number] patient care, completing clinical documentation, obtaining and/or reviewing separately obtained history, counseling and educating the patient/family/caregiver, independently interpreting results (not separately reported), and communicating results to the patient/family/caregiver. Tyler Daniels PA-C [facility] Instructions 10-28-2022 Patient Instructions Note Date & Type Note Facility 10-28-2022 Instructions Tyler Daniels PA-C - 10/28/2022 8:30 AM EDT The following instructions are important for you related to your office visit today with the [facility] General Surgeons. INSTRUCTIONS FOLLOWING A POLYP FOUND AT COLONOSCOPY You were found to have an adenomatous colon polyp. I recommend you undergo repeat endoscopy in 5 years. If you note bleeding, change in bowel habits, or other suspicious colon related symptoms before that time, those symptoms should be evaluated as necessary. If you have any difficulties or concerns, you should contact our office immediately. INSTRUCTIONS FOR DIVERTICULA I recommend that you continue on a high-fiber diet. Avoidance of seeds is not necessary in general. Recent studies have demonstrated that seeds do not increase you risk of developing diverticulitis. If specific foods tend to cause discomfort, those should be avoided. Signs of diverticulitis (inflammation of diverticulosis) include - abdominal distention, fever, abdominal pain typically in the left lower quadrant, and changes of bowel habits. If these symptoms appear, you are instructed to contact our office immediately. If you note any additional difficulties or concerns, you should contact our office immediately. If you note any additional difficulties, questions, or concerns, you should contact our office immediately @ [phone] and ask to be transferred to the General Surgery department. documented in this encounter [facility] History of Present illness Narrative 10-28-2022 Tyler Daniels PA-C - 10/28/2022 8:21 AM EDT Note Date & Type Note Facility 10-28-2022 History of Presen t illness Narrative FOLLOW UP VISIT - ENDOSCOPY NAME: Geo Polanco [facility] NO.: [id number] DATE OF SERVICE: 10/28/2022 : 1960 REFERRING PHYSICIAN: Flip Leone MD Geo is a patient I am following for family history of colon cancer and need for high-risk surveillance colonoscopy. Dr. Dumont performed lower endoscopy on 10/15/22. The patient was found to have non-bleeding internal hemorrhoids, sigmoid diverticulosis, and a small sigmoid colon polyp which was removed. Pathology demonstrated: FINAL DIAGNOSIS Sigmoid colon polyp, biopsy: - Tubular adenoma. JEL 10/18/2022 The patient notes no complaints since the procedure. VITALS: Blood pressure 150/78, pulse 77, temperature 36.6 C (97.8 F), height 170.2 cm (5' 7 ), weight 72.8 kg (160 lb 9.6 oz), SpO2 96 %. General: patient is alert, cooperative, pleasant and in no acute distress On examination, the abdomen is benign. Assessment IMPRESSION: s/p colonoscopy with polypectomy, tubular adenoma PLAN: The operative findings and pathology report were reviewed with the patient, and the patient has had the opportunity to ask questions and have questions answered. If the patient notes any problems or changes in bowel function, the patient should contact me immediately. Otherwise I recommend follow up colonoscopy in 5 years Patient verbalized understanding of all above and agreed with the plan Diagnoses: (Z80.0) Family history of colon cancer (primary encounter diagnosis) (D36.9) Tubular adenoma (K57.90) Diverticulosis I spent a total of 22 minutes on the date of the service which included preparing to see the patient, [id number] patient care, completing clinical documentation, obtaining and/or reviewing separately obtained history, counseling and educating the patient/family/caregiver, independently interpreting results (not separately reported), and communicating results to the patient/family/caregiver. Tyler Daniels PA-C documented in this encounter [facility] Clinical Note 10-15-2022 Note Date & Type Note Facility 10-15-2022 Note HNO ID: [id number] Author: Leanne Moss RN Service: ? Author Type: Registered Nurse Type: Nursing Progress Note Filed: 10/15/2022 10:17 AM Note Text: Abdomen soft non-distended. Will continue to monitor. [facility] Progress note 09-27-2022 Note Date & Type Note Facility 09-27-2022 Note HNO ID: [id number] Author: Tyler Daniels PA-C Service: ? Author Type: Physician Glass Setter Type: Progress Notes Filed: 09/27/2022 8:29 AM Note Text: HISTORY AND PHYSICAL Geo Polanco 1960 REFERRING PHYSICIAN: Flip Leone MD CHIEF COMPLAINT: Consult (Colonoscopy consult) HPI: The patient is a 61 year old female referred for endoscopy. Geo notes no colon complaints. Patient denies any change in bowel habits, weight changes, blood in stools, black tarry stools or abdominal pain. NOTES family history of colon cancer. The patient notes no upper GI complaints. Geo has undergone prior endoscopy. Last colonoscopy 07/22/[address] Pedro under conscious sedation. No concerning findings, repeat recommended in 5 years based on family history. Patient denies any cardiac or respiratory issues. Denies problems with sedation in the past. PAST MEDICAL HISTORY Diagnosis Date Benign neoplasm of colon Diverticulosis of colon (without mention of hemorrhage) Family history of malignant neoplasm of gastrointestinal tract Hypertension Internal hemorrhoids without mention of complication Mixed hyperlipidemia Skin cancer specific type not recalled - on face PAST SURGICAL HISTORY Procedure Laterality Date COLONOSCOPY FLX DX W/COLLJ SPEC WHEN PFRMD 01/12/99 Colonoscopy COLONOSCOPY FLX DX W/COLLJ SPEC WHEN PFRMD 08/02/03 Colonoscopy COLONOSCOPY FLX DX W/COLLJ SPEC WHEN PFRMD 06/08/2013 Colonoscopy COLONOSCOPY FLX DX W/COLLJ SPEC WHEN PFRMD 07/22/2017 Colonoscopy COLONOSCOPY W/BIOPSY SINGLE/MULTIPLE 10/10/09 MOHS MICROGRAPHIC H/N/H/F/G 1ST STAGE 5 BLOCKS Current Outpatient Medications Medication Sig cholecalciferol, vitamin D3, 1,250 mcg (50,000 unit) tab Take by mouth. ezetimibe (ZETIA) 10 mg tablet Take 10 mg by mouth daily at bedtime. icosapent ethyl (VASCEPA) 1 gram capsule Take by mouth. lisinopril (ZESTRIL, PRINIVIL) 10 mg tablet Take 10 mg by mouth once daily. rosuvastatin (CRESTOR) 10 mg tablet Take 10 mg by mouth once daily. CALCIUM PHOSPHATE DIBAS/VIT D3 (VITAMIN D, WITH CALCIUM, ORAL) Take by mouth. No current facility-administered medications for this visit. ALLERGIES: Patient has no known allergies. PERSONAL HISTORY: Social History Tobacco Use Smoking status: Never Smokeless tobacco: Never Vaping Use Vaping Use: Never used Substance Use Topics Alcohol use: Yes Alcohol/week: 5.0 standard drinks Types: 2 Cans of Beer (12oz) per week Comment: daily Drug use: No FAMILY HISTORY: FAMILY HISTORY Problem Relation Age of Onset Colon Cancer Sister Diagnosed at age 48 Colon Cancer Brother of the disease at age 38 REVIEW OF SYMPTOMS: The review of systems data was entered by the nurse and reviewed by hi Nursing Notes: Jordyn Scott RN 09/27/2022 8:18 AM Signed REVIEW OF SYSTEMS: General: The patient denies fatigue, denies weight loss, denies weight gain, denies feeling hot, and denies feelings of cold. Eyes: The patient denies glaucoma, denies eye injury/surgery, wears glasses or contacts. Ear/Nose/Throat: The patient denies allergies, denies hayfever, denies ear infections, and denies bloody noses. Cardiovascular: The patient denies chest pain, denies heart disease, NOTES high blood pressure,denies cardiac stent, denies prior heart attack, denies irregular heart beat, NOTES high cholesterol, denies poor circulation, denies heart [...] and denies bloody urine. Skin: The patient NOTES a history of skin cancer, denies bleeding/changing [...] diseases. Musculoskeletal: The patient denies back pain/injury, d (more content not included)... [facility] Evaluation note Note Date & Type Note Facility documented in this encounter [facility] Summary Purpose Family History No Family History Records Found Advance Directives No Advanced Directives Records Found Additional Source Comments Source Comments (unrecognize d section and content) In the event this informatio n is protected by the Federal Confidentiality of Alcohol and Drug Abuse Patient Records regulations: The Federal rules restrict any use of the information to criminally investigate or prosecute any alcohol or drug abuse patient.[facility] Reason for Visit (unrecogniz ed section and content) Care Teams (unrecognized sec tion and content) INFORMATION SOURCE (unrecogn ized section and content) FOR RECORDS PERTAINING TO PATIENTS WHO ARE OR HAVE BEEN ENROLLED IN A CHEMICAL DEPENDENCY/SUBSTANCEABUSE PROGRAM, SOME INFORMATION MAY BE OMITTED. This clinical summary was aggregated from multiple sources. Caution should be exercised in using it in the provision of clinical care. This summary normalizes information from multiple sources, and as a consequence, information in this document may materially change the coding, format and clinical context of patient data. In addition, data may be omitted in some cases. CLINICAL DECISIONS SHOULD BE BASED ON THE PRIMARY CLINICAL RECORDS. [facility]. provides no warranty or guarantee of the accuracy or completeness of information in this document.
== END | disposition home or self-care (01) ==
LOC: US 07:22
PROVIDERS: PCP Family Medicine; Referring Provider Family Medicine; Visit Provider Family Medicine
DX: R74.8 Abnormal levels of other serum enzymes (principal)
CPT/HCPCS: 76705; 76981

== ENCOUNTER → 2024-02-08 | Outpatient (CLI) | payer BC, SELFPAY ==
[2024-02-08 13:08] LABS: ALB/GLOB Ratio 1.2 RATIO (0.9-2.4); AST(SGOT) 28 U/L (15-37); Alanine Aminotransfer ALT/SGPT 56 U/L (13-56); Albumin, Serum 3.8 g/dL (3.2-5.0); Alkaline Phosphatase 70 U/L (45-117); Anion Gap 8 (5-15); BUN 13 mg/dL (7-18); BUN/Creat Ratio 18.5 RATIO (10-20); Calcium,Total 9.4 mg/dL (8.5-10.1); Chloride 105 mmol/L (98-107); Cholesterol 236 mg/dL (200); EST Glomerular Filtration Rate 89 mL/min (>60); Est Glom Filt Rate - Afr Amer 108 mL/min (>60); Globulin 3.2 g/dL (2.2-4.2); Glucose 105 mg/dL (74-106); High Density Lipoprotein 80 mg/dL; Sodium Level 138 mmol/L (136-145); Triglycerides 373 mg/dL; Very Low Density Lipoprotein 75 mg/dL (5-40)
== END | disposition home or self-care (01) ==
LOC: MTLAB 09:50
PROVIDERS: PCP Family Medicine; Referring Provider Internal Medicine Gastroenterology; Visit Provider Internal Medicine Gastroenterology
DX: K76.0 Fatty (change of) liver, not elsewhere classified (principal)
CPT/HCPCS: 36415; 80053; 80061

== ENCOUNTER → 2024-04-30 | Outpatient (CLI) | payer BC, SELFPAY ==
[2024-04-30 12:18] LABS: Absolute Lymphocyte Count 2.27 X10^3/uL (0.83-4.51); Absolute Neutrophil Count 4.4 X10^3/uL (2.0-7.7); Basophil# 0.06 X10^3/uL; Basophil% 0.8 % (0-1); Eosinophil# 0.14 X10^3/uL; Eosinophils% 1.9 % (0-5); Hematocrit 41.8 % (37-47); Hemoglobin 13.6 g/dL (12.0-15.0); Lymphocyte # 2.27 X10^3/ul (0.83-4.51); Lymphocyte % 30.4 % (19-41); Mean Corp Hgb Conc 32.5 g/dL (32-36); Mean Corpuscular Hgb 29.4 pg (27.0-32.0); Mean Corpuscular Volume 90.5 fL (81-99); Mean Platelet Vol. 8.8 fl (6.2-12.0); Monocyte# 0.56 X10^3/uL; Monocyte% 7.5 % (0-10); NRBC Flagged by Analyzer 0 % (0-5); Neutrophil # 4.41 X10^3/uL (2.7-7.7); Platelet Count 280 K/mm3 (150-450); RBC Distribution Width CV 12.2 % (11.6-14.6); RBC Distribution Width SD 40.4 fl (35.1-43.9); Red Blood Count 4.62 M/mm3 (4.2-5.4); White Blood Count 7.5 K/mm3 (4.4-11.0)
[2024-04-30 13:02] LABS: ALB/GLOB Ratio 1.1 RATIO (0.9-2.4); AST(SGOT) 28 U/L (15-37); Alanine Aminotransfer ALT/SGPT 53 U/L (13-56); Albumin, Serum 3.7 g/dL (3.2-5.0); Alkaline Phosphatase 71 U/L (45-117); Anion Gap 7 (5-15); BUN 12 mg/dL (7-18); BUN/Creat Ratio 16.9 RATIO (10-20); Calcium,Total 9.3 mg/dL (8.5-10.1); Chloride 104 mmol/L (98-107); Cholesterol 209 mg/dL (200); Creatinine, Serum 0.71 mg/dL (0.55-1.02); EST Glomerular Filtration Rate 88 mL/min (>60); Est Glom Filt Rate - Afr Amer 106 mL/min (>60); Globulin 3.4 g/dL (2.2-4.2); Glucose 95 mg/dL (74-106); High Density Lipoprotein 89 mg/dL; Potassium 4.1 mmol/L (3.5-5.1); Protein, Total 7.1 g/dL (6.4-8.2); Sodium Level 137 mmol/L (136-145); Triglycerides 263 mg/dL
[2024-05-01 04:07] LABS: GGTP 82 IU/L (0-60); LDL, Direct 120295 103 mg/dL (0-99)
== END | disposition home or self-care (01) ==
LOC: MFPLAB 09:25
PROVIDERS: PCP Family Medicine; Referring Provider Family Medicine; Visit Provider Family Medicine
DX: I10 Essential (primary) hypertension (principal); E78.1 Pure hyperglyceridemia
CPT/HCPCS: 36415; 80053; 82465; 82977; 83718; 83721; 84478; 85025

== ENCOUNTER → 2024-11-02 | Outpatient (CLI) | payer BC, SELFPAY ==
--- OUTSIDE RECORDS SUMMARY | 2024-11-02 09:18 | XMS RPT_ITS | CCD ---
Author Organization [facility] Care Team Providers Care Patient Scheduler Name Role Phone Dr. Flip Leone Primary Care Provider [phone] Dr. Flip Leone Referring Provider [phone] Romulo Dean Attending Provider Flip Leone MD Primary Care Provider [phone] FLIP LEONE Primary Care Unavailable TYLER DANIELS Attending Unavailable IZA KIRK Referring Unavailable TYLER DANIELS Referring Unavailable IZA KIRK Attending Unavailable FLIP LEONE Primary Care Unavailable , TYLER Attending Unavailable FLIP LEONE Referring Unavailable FLIP LEONE Primary Care Unavailable Flip Leone Primary Care Unavailable Flip Leone Referring Unavailable Flip Leone Attending Unavailable Rodolfo Palacios Referring Unavailable Rodolfo Palacios Attending Unavailable Flip Leone Primary Care Unavailable Medications Current Medications Medication Drug Class(es) Dates Sig (Normalized) Sig (Original) cholecalciferol 1.25 mg oral tablet (7 sources) Vitamin D Start: 12-10-2021 take 1 tablet by mouth every week Cholecalciferol (Vitamin D3) (Dialyvite Vitamin D3 Max) 1,250 mcg (50,000 unit) tablet Active 1250 MCG PO EVERY WEEK December 09, 2021 11:00pm Comment on above: Take by mouth. ezetimibe 10 mg oral tablet (7 sources) Dietary Cholesterol Absorption Inhibitor Start: 12-10-2021 take 10 mg by mouth once daily Ezetimibe Active 10 MG PO DAILY December 09, 2021 11:00pm Comment on above: Take 10 mg by mouth daily at bedtime. lisinopril 10 mg oral tablet (7 sources) Angiotensin Converting Enzyme Inhibitor Start: 12-10-2021 take 10 mg by mouth once daily Lisinopril Active 10 MG PO DAILY December 09, 2021 11:00pm Comment on above: Take 10 mg by mouth once daily. [place] 6-Lkn-Zhh-Fish Oil (Fish Oil) 60-90-500 mg capsule (6 sources) Start: 12-10-2021 take 1 capsule by mouth once daily [place] 9-Ibv-Xds-Fish Oil (Fish Oil) 60-90-500 mg capsule Active 1 CAP PO DAILY December 09, 2021 11:00pm Start: 12-10-2021 take 1 capsule by mo [facility] once daily [place] 9-Wtq-Ztl-Fish Oil (Fish Oil) 60-90-500 mg capsule Active 1 CAP PO DAILY December 10, 2021 12:00am Completed/Discontinued Medications Medication Drug Class(es) Dates Sig (Normalized) Sig (Original) CALCIUM PHOSPHATE DIBAS/VIT D3 (VITAMIN D, WITH CALCIUM, ORAL) (1 source) CALCIUM PHOSPHAT E DIBAS/VIT D3 (VITAMIN D, WITH CALCIUM, ORAL) Take by mouth. 0 Active Comment on above: Take by mouth. icosapent ethyl 1000 mg oral capsule (1 source) icosapent ethyl (VASCEPA) 1 gram capsule Take by mouth. 0 Active Comment on above: Take by mouth. rosuvastatin calcium 10 mg oral tablet (1 source) HMG-CoA Reductase Inhibitor take 1 tablet by mouth once daily rosuvastatin (CRESTOR) 10 mg tablet Take 10 mg by mouth once daily. 0 Active Comment on above: Take 10 mg by mouth once daily. Problems Problem Classification Problem Date Documented Date Episodic/Chronic Abdominal hernia (8 sources) Umbilical hernia; Translations: [Umbilical hernia without obstruction or gangrene] Episodic Abdominal pain (8 sources) Abdominal pain; Translations: [Unspecified abdominal pain] Episodic Disorders of lipid metabolism (1 source) Mixed hyperlipidemia; Translations: [Mixed hyperlipidemia] 07-17-2009 Chronic Diverticulosis and diverticulitis (1 source) Diverticular disease; Translations: [Diverticulosis of intestine, part unspecified, without perforation or abscess without bleeding] 10-28-2022 Chronic Essential hypertension (7 sources) Hypertensive disorder; Translations: [Essential (primary) hypertension] Onset: 05-21-2024 12-10-2021 Chronic Other and unspecified benign neoplasm (1 source) Tubular adenoma ; Translations: [Benign neoplasm, unspecified site] 10-28-2022 Episodic Other liver diseases (1 source) Fatty (change of) liver, not elsewhere classified; Translations: [Fatty (change of) liver, not elsewhere classified] Onset: 03-02-2024 Chronic Other liver diseases (6 sources) Elevated liver enzymes level; Translations: [Abnormal levels of other serum enzymes] 12-10-2021 Episodic Other liver diseases (2 sources) Abnormal levels of other serum enzymes; Translations: [Other nonspecific abnormal serum enzyme levels] Episodic Other screening for suspected conditions (not [...] Name Value Interpretation Reference Range Facil ity L501.5101on 05-01-2024 GGTP 82 IU/L Abnormal 0-60 [facility] Comment on above: Order Comment: Order Date: 04/30/24 Order Info: 2324-2 - GGTP Order Info: 42777-8 - LDLD Result Comment: Perf ormed at: - [facility] [address] [id number] [employer] Mask Assembler: Rodolfo Frederick PhD, Phone: [phone] Performed By: #### L 501.5101, L100.0100 #### [facility] [address] [place] [address], [address] LDL, Directon 05-01-2024 Cholesterol in LDL [Mass/Vol] 103 mg/dL High 0-99 [facility] Comment on above: Order Comment: Order Date: 04/30/24 Order Info: 2324-2 - GGTP Order Info: 97174-9 - LDLD Performed By: #### L 3300.4490, L501.5000, L501.6400, L500.4050, L501.4900 #### [facility] [address] [place], [address] COMMENT TNP Normal . [facility] Comment on above: Order Comment: Order Date: 04/30/24 Order Info: 2324-2 - GGTP Order Info: 69329-9 - LDLD Performed By: #### L 3300.4490, L501.5000, L501.6400, L500.4050, L501.4900 #### [facility] [address] [place], [address] CBC W/Diff, Automatedon 04-18 Absolute Lymph 2.27 X10 3/uL Normal 0.83-4.51 [facility] Comment on above: Order Comment: Order Date: 04/30/24 Order Info: 0184-1 - CBCD Performed By: #### L 501.5101, L100.0100 #### [facility] [address] [place], [address] Absolute Neut 4.4 X10 3/uL Normal 2.0-7.7 [facility] Comment on above: Order Comment: Order Date: 04/30/24 Order Info: 0184-1 - CBCD Performed By: #### L 501.5101, L100.0100 #### [facility] [address] [place], [address] Basophils/100 WBC (Bld) 0.8 % Normal 0-1 [facility] Comment on above: Order Comment: Order Date: 04/30/24 Order Info: 0184-1 - CBCD Performed By: #### L 501.5101, L100.0100 #### [facility] [address] [place], [address] Eosinophils/100 WBC (Bld) 1.9 % Normal 0-5 [facility] Comment on above: Order Comment: Order Date: 04/30/24 Order Info: 0184-1 - CBCD Performed By: #### L 501.5101, L100.0100 #### [facility] [address] [place], [address] Erythrocyte distribution width (RBC) [Ratio] 12.2 % Normal 11.6-14.6 [facility] Comment on above: Order Comment: Order Date: 04/30/24 Order Info: 0184-1 - CBCD Performed By: #### L 501.5101, L100.0100 #### [facility] [address] [place], [address] Hematocrit (Bld) [Volume fraction] 41.8 % Normal 37-47 [facility] Comment on above: Order Comment: Order Date: 04/30/24 Order Info: 0184-1 - CBCD Performed By: #### L 501.5101, L100.0100 #### [facility] [address] [place], [address] Hemoglobin (Bld) [Mass/Vol] 13.6 g/dL Normal 12.0-15.0 [facility] Comment on above: Order Comment: Order Date: 04/30/24 Order Info: 0184-1 - CBCD Performed By: #### L 501.5101, L100.0100 #### [facility] [address] [place], [address] IG% 0.400 Normal 0.0-0.9 [facility] Comment on above: Order Comment: Order Date: 04/30/24 Order Info: 0184-1 - CBCD Result Comment: IG% - Immature Granulocytes (promyelocytes, myelocytes and metamyelocytes) > 1% indicates that a LEFT SHIFT is Present. Performed By: #### L 501.5101, L100.0100 #### [facility] [address] [place], [address] Lymphocytes/100 WBC (Bld) 30.4 % Normal 19-41 [facility] Comment on above: Order Comment: Order Date: 04/30/24 Order Info: 0184-1 - CBCD Performed By: #### L 501.5101, L100.0100 #### [facility] [address] [place], [address] MCH (RBC) [Entitic mass] 29.4 pg Normal 27.0-32.0 [facility] Comment on above: Order Comment: Order Date: 04/30/24 Order Info: 0184-1 - CBCD Performed By: #### L 501.5101, L100.0100 #### [facility] [address] [place], [address] MCHC (RBC) [Mass/Vol] 32.5 g/dL Normal 32-36 [facility] Comment on above: Order Comment: Order Date: 04/30/24 Order Info: 0184-1 - CBCD Performed By: #### L 501.5101, L100.0100 #### [facility] [address] [place], [address] MCV (RBC) [Entitic vol] 90.5 fL Normal 81-99 [facility] Comment on above: Order Comment: Order Date: 04/30/24 Order Info: 0184-1 - CBCD Performed By: #### L 501.5101, L100.0100 #### [facility] [address] [place], [address] Monocytes/100 WBC (Bld) 7.5 % Normal 0-10 [facility] Comment on above: Order Comment: Order Date: 04/30/24 Order Info: 0184-1 - CBCD Performed By: #### L 501.5101, L100.0100 #### [facility] [address] [place], [address] Neutrophils/100 WBC (Bld) 59.0 % Normal 47-70 [facility] Comment on above: Order Comment: Order Date: 04/30/24 Order Info: 0184-1 - CBCD Performed By: #### L 501.5101, L100.0100 #### [facility] [address] [place], [address] Nucleated RBC (Bld) [#/Vol] 0 10*3/uL Normal 0-5 [facility] Comment on above: Order Comment: Order Date: 04/30/24 Order Info: 0184-1 - CBCD Performed By: #### L 501.5101, L100.0100 #### [facility] [address] [place], [address] Platelet mean volume (Bld) [Entitic vol] 8.8 fL Normal 6.2-12.0 [facility] Comment on above: Order Comment: Order Date: 04/30/24 Order Info: 0184-1 - CBCD Performed By: #### L 501.5101, L100.0100 #### [facility] [address] [place], [address] Platelets (Bld) [#/Vol] 280 10*3/uL Normal 150-450 [facility] Comment on above: Order Comment: Order Date: 04/30/24 Order Info: 0184- - CBCD Performed By: #### L 501.5101, L100.0100 #### [facility] [address] [place], [address] RBC (Bld) [#/Vol] 4.62 10*6/uL Normal 4.2-5.4 [facility] Comment on above: Order Comment: Order Date: 04/30/24 Order Info: 0184-1 - CBCD Performed By: #### L 501.5101, L100.0100 #### [facility] [address] [place], [address] RDW SD 40.4 fl Normal 35.1-43.9 [facility] Comment on above: Order Comment: Order Date: 04/30/24 Order Info: 0184-1 - CBCD Performed By: #### L 501.5101, L100.0100 #### [facility] [address] [place], [place], [address] WBC (Bld) [#/Vol] 7.5 10*3/uL Normal 4.4-11.0 [facility] Comment on above: Order Comment: Order Date: 04/30/24 Order Info: 0184-1 - CBCD Performed By: #### L 501.5101, L100.0100 #### [facility] [address] [place], [address] Cholesterolon 04-30-2024 Cholesterol [Mass/Vol] 209 mg/dL High [address] [facility] Comment on above: Order Comment: Order Date: 04/30/24 Order Info: 0786-1 - CMP Order Info: 2092-06 - CHOL Order Info: 2570-11 - TRIG Order Info: 2084-12 - HDL Result Comment: <200 mg/dL Desirable 200-240 mg/dL Borderline >240 mg/dL High Risk Performed By: #### L 3300.4490, L501.5000, L501.6400, L500.4050, L501.4900 #### [facility] [address] [place], [address] Comprehensive Metabolic Prof ilon 04-30-2024 Albumin [Mass/Vol] 3.7 g/dL Normal 3.2-5.0 [facility] Comment on above: Order Comment: Order Date: 04/30/24 Order Info: 0786-1 - CMP Order Info: 2092-06 - CHOL Order Info: 2570-8 - TRIG Order Info: 2084-12 - HDL Performed By: #### L 3300.4490, L501.5000, L501.6400, L500.4050, L501.4900 #### [facility] [address] [place], [place], [address] Albumin/Globulin [Mass ratio] 1.1 {ratio} Normal 0.9-2.4 [facility] Comment on above: Order Comment: Order Date: 04/30/24 Order Info: 0786-1 - CMP Order Info: 2092-06 - CHOL Order Info: 2570-11 - TRIG Order Info: 2084-12 - HDL Performed By: #### L 3300.4490, L501.5000, L501.6400, L500.4050, L501.4900 #### [facility] [address] [place], [address] ALK P 71 U/L Normal 45-117 [facility] Comment on above: Order Comment: Order Date: 04/30/24 Order Info: 785-04 - CMP Order Info: 2092-06 - CHOL Order Info: 2570-11 - TRIG Order Info: 2084-12 - HDL Performed By: #### L 3300.4490, L501.5000, L501.6400, L500.4050, L501.4900 #### [facility] [address] [place], [address] ALT [Catalytic activity/Vol] 53 U/L Normal 13-56 [facility] Comment on above: Order Comment: Order Date: 04/30/24 Order Info: 785-04 - CMP Order Info: 2092-06 - CHOL Order Info: 2570-11 - TRIG Order Info: 2084-12 - HDL Performed By: #### L 3300.4490, L501.5000, L501.6400, L500.4050, L501.4900 #### [facility] [address] [place], [address] AST [Catalytic activity/Vol] 28 U/L Normal 15-37 [facility] Comment on above: Order Comment: Order Date: 04/30/24 Order Info: 785-04 - CMP Order Info: 2092-06 - CHOL Order Info: 2570-11 - TRIG Order Info: 2084-12 - HDL Performed By: #### L 3300.4490, L501.5000, L501.6400, L500.4050, L501.4900 #### [facility] [address] [place], [address] Bilirubin [Mass/Vol] 0.70 mg/dL Normal 0.20-1.00 [facility] Comment on above: Order Comment: Order Date: 04/30/24 Order Info: 785-1 - CMP Order Info: 2092-06 - CHOL Order Info: 8 - TRIG Order Info: 2084-12 - HDL Result Comment: For patients on eltrombopag therapy, use of Dimension Lolo TBIL is not recommended. Performed By: #### L 3300.4490, L501.5000, L501.6400, L500.4050, L501.4900 #### [facility] [address] [place], [address] BUN/CRE 16.9 RATIO Normal 10-20 [facility] Comment on above: Order Comment: Order Date: 04/30/24 Order Info: 785-1 - CMP Order Info: 2092-06 - CHOL Order Info: 8 - TRIG Order Info: 2084-12 - HDL Performed By: #### L 3300.4490, L501.5000, L501.6400, L500.4050, L501.4900 #### [facility] [address] [place], [address] CA,Total 9.3 mg/dL Normal 8.5-10.1 [facility] Comment on above: Order Comment: Order Date: 04/30/24 Order Info: 785-1 - CMP Order Info: 2092-06 - CHOL Order Info: 8 - TRIG Order Info: 2084-12 - HDL Performed By: #### L 3300.4490, L501.5000, L501.6400, L500.4050, L501.4900 #### [facility] [address] [place], [address] Chloride [Moles/Vol] 104 mmol/L Normal 98-107 [facility] Comment on above: Order Comment: Order Date: 04/30/24 Order Info: 785-1 - CMP Order Info: 2092-06 - CHOL Order Info: 8 - TRIG Order Info: 2084-12 - HDL Performed By: #### L 3300.4490, L501.5000, L501.6400, L500.4050, L501.4900 #### [facility] [address] [place], [address] CO2 [Moles/Vol] 26.0 mmol/L Normal 21.0-32.0 [facility] Comment on above: Order Comment: Order Date: 04/30/24 Order Info: 785- - CMP Order Info: 2092-06 - CHOL Order Info: 2570-11 TRIG Order Info: 2084-12 - HDL Performed By: #### L 3300.4490, L501.5000, L501.6400, L500.4050, L501.4900 #### [facility] [address] [place], [address] Creatinine [Mass/Vol] 0.71 mg/dL Normal 0.55-1.02 [facility] Comment on above: Order Comment: Order Date: 04/30/24 Order Info: 785-04 - CMP Order Info: 2092-06 - CHOL Order Info: 2570-11 TRIG Order Info: 2084-12 - HDL Result Comment: The validity of the calculated GFR GFRAA in patients over 70 years has not been determined. Clinical correlation is essential. Performed By: #### L 3300.4490, L501.5000, L501.6400, L500.4050, L501.4900 #### [facility] [address] [place], [address] EST GFR - AA 106 mL/min Normal >60 [facility] Comment on above: Order Comment: Order Date: 04/30/24 Order Info: 785-04 - CMP Order Info: 2092-06 - CHOL Order Info: 2570-11 - TRIG Order Info: 2084-12 - HDL Result Comment: Afri can Swazi GFR Calc Performed By: #### L 3300.4490, L501.5000, L501.6400, L500.4050, L501.4900 #### [facility] [address] [place], [address] GAP 7 Normal 5-15 [facility] Comment on above: Order Comment: Order Date: 04/30/24 Order Info: 785-1 - CMP Order Info: 3 - CHOL Order Info: 2578 - TRIG Order Info: 2084-12 - HDL Performed By: #### L 3300.4490, L501.5000, L501.6400, L500.4050, L501.4900 #### [facility] [address] [place], [address] GFR/1.73 sq M.predicted among non-blacks MDRD (S/P/Bld) [Vol rate/Area] 88 mL/min/{1.73_m2} Normal >60 [facility] Comment on above: Order Comment: Order Date: 04/30/24 Order Info: 785-04 - CMP Order Info: 2092-06 - CHOL Order Info: 2570-11 - TRIG Order Info: 2084-12 - HDL Result Comment: Non- GFR Calc Performed By: #### L 3300.4490, L501.5000, L501.6400, L500.4050, L501.4900 #### [facility] [address] [place], [address] Globulin (S) [Mass/Vol] 3.4 g/dL Normal 2.2-4.2 [facility] Comment on above: Order Comment: Order Date: 04/30/24 Order Info: 785-04 - CMP Order Info: 2092-06 - CHOL Order Info: 2578 - TRIG Order Info: 2084-12 - HDL Performed By: #### L 3300.4490, L501.5000, L501.6400, L500.4050, L501.4900 #### [facility] [address] [place], [address] Glucose [Mass/Vol] 95 mg/dL Normal 74-106 [facility] Comment on above: Order Comment: Order Date: 04/30/24 Order Info: 785-1 - CMP Order Info: 2092-06 - CHOL Order Info: 2570-11 - TRIG Order Info: 2084-12 - HDL Performed By: #### L 3300.4490, L501.5000, L501.6400, L500.4050, L501.4900 #### [facility] [address] [place], [address] Potassium [Moles/Vol] 4.1 mmol/L Normal 3.5-5.1 [facility] Comment on above: Order Comment: Order Date: 04/30/24 Order Info: 785-1 - CMP Order Info: 2092-06 - CHOL Order Info: 2570-11 - TRIG Order Info: 2084-12 - HDL Performed By: #### L 3300.4490, L501.5000, L501.6400, L500.4050, L501.4900 #### [facility] [address] [place], [address] Sodium [Moles/Vol] 137 mmol/L Normal 136-145 [facility] Comment on above: Order Comment: Order Date: 04/30/24 Order Info: 1 - CMP Order Info: 2092-06 - CHOL Order Info: 2578 - TRIG Order Info: 2084-12 - HDL Performed By: #### L 3300.4490, L501.5000, L501.6400, L500.4050, L501.4900 #### [facility] [address] [place], [address] T PROT 7.1 g/dL Normal 6.4-8.2 [facility] Comment on above: Order Comment: Order Date: 04/30/24 Order Info: 785-1 - CMP Order Info: 2092-06 - CHOL Order Info: 2578 - TRIG Order Info: 2084-12 - HDL Performed By: #### L 3300.4490, L501.5000, L501.6400, L500.4050, L501.4900 #### [facility] [address] [place], [address] Urea nitrogen [Mass/Vol] 12 mg/dL Normal 7-18 [facility] Comment on above: Order Comment: Order Date: 04/30/24 Order Info: 07-1 - CMP Order Info: 2092-06 - CHOL Order Info: 25704-25 - TRIG Order Info: 2084-12 - HDL Performed By: #### L 3300.4490, L501.5000, L501.6400, L500.4050, L501.4900 #### [facility] [address] [place], [address] High Density Lipoproteinon 0 04-30-2024 Cholesterol in HDL [Mass/Vol] 89 mg/dL Normal [facility] Comment on above: Order Comment: Order Date: 04/30/24 Order Info: 785-04 - CMP Order Info: 2092-06 - CHOL Order Info: 2570-11 - TRIG Order Info: 2084-12 - HDL Result Comment: The drugs N-Acetylcysteine and Metamizole may falsely depress this assay. Reference Range HDL <40 mg/dL Low HDL Cholesterol HDL >or= 60 mg/dL High HDL Cholesterol Performed By: #### L 3300.4490, L501.5000, L501.6400, L500.4050, L501.4900 #### [facility] [address] [place], [address] Triglycerideson 04-30-2024 Triglyceride [Mass/Vol] 263 mg/dL High [facility] Comment on above: Order Comment: Order Date: 04/30/24 Order Info: 785-04 - CMP Order Info: 2092-06 - CHOL Order Info: 25704-25 - TRIG Order Info: 2084-12 - HDL Result Comment: The drugs N-Acetylcysteine and Metamizole may falsely depress this assay. Serum Triglycerides Reference Interval Normal <150 mg/dL Borderline high 150 - 199 mg/dL High 200 - 499 mg/dL Very High > or = 500 mg/dL Performed By: #### L 3300.4490, L501.5000, L501.6400, L500.4050, L501.4900 #### [facility] [address] [place], [address] Comprehensive Metabolic Prof ilon 02-08-2024 Albumin [Mass/Vol] 3.8 g/dL Normal 3.2-5.0 [facility] Comment on above: Performed By: #### L 500.4050, L500.4100 #### [facility] [address] [place], [address] Albumin/Globulin [Mass ratio] 1.2 {ratio} Normal 0.9-2.4 [facility] Comment on above: Performed By: #### L 500.4050, L500.4100 #### [facility] [address] [place], [address] ALK P 70 U/L Normal 45-117 [facility] Comment on above: Performed By: #### L 500.4050, L500.4100 #### [facility] [address] [place], [address] ALT [Catalytic activity/Vol] 56 U/L Normal 13-56 [facility] Comment on above: Performed By: #### L 500.4050, L500.4100 #### [facility] [address] [place], [address] AST [Catalytic activity/Vol] 28 U/L Normal 15-37 [facility] Comment on above: Performed By: #### L 500.4050, L500.4100 #### [facility] [address] [place], [address] Bilirubin [Mass/Vol] 0.70 mg/dL Normal 0.20-1.00 [facility] Comment on above: Result Comment: For patients on eltrombopag therapy, use of Dimension Lolo TBIL is not recommended. Performed By: #### L 500.4050, L500.4100 #### [facility] [address] [place], [address] BUN/CRE 18.5 RATIO Normal 10-20 [facility] Comment on above: Performed By: #### L 500.4050, L500.4100 #### [facility] [address] [place], [address] CA,Total 9.4 mg/dL Normal 8.5-10.1 [facility] Comment on above: Performed By: #### L 500.4050, L500.4100 #### [facility] [address] [place], [address] Chloride [Moles/Vol] 105 mmol/L Normal 98-107 [facility] Comment on above: Performed By: #### L 500.4050, L500.4100 #### [facility] [address] [place], [address] CO2 [Moles/Vol] 25.0 mmol/L Normal 21.0-32.0 [facility] Comment on above: Performed By: #### L 500.4050, L500.4100 #### [facility] [address] [place], [address] Creatinine [Mass/Vol] 0.70 mg/dL Normal 0.55-1.02 [facility] Comment on above: Result Comment: The validity of the calculated GFR GFRAA in patients over 70 years has not been determined. Clinical correlation is essential. Performed By: #### L 500.4050, L500.4100 #### [facility] [address] [place], [address] EST GFR - AA 108 mL/min Normal >60 [facility] Comment on above: Result Comment: Afri can Swazi GFR Calc Performed By: #### L 500.4050, L500.4100 #### [facility] [address] [place], [address] GAP 8 Normal 5-15 [facility] Comment on above: Performed By: #### L 500.4050, L500.4100 #### [facility] [address] [place], [address] GFR/1.73 sq M.predicted among non-blacks MDRD (S/P/Bld) [Vol rate/Area] 89 mL/min/{1.73_m2} Normal >60 [facility] Comment on above: Result Comment: Non- GFR Calc Performed By: #### L 500.4050, L500.4100 #### [facility] [address] [place], [address] Globulin (S) [Mass/Vol] 3.2 g/dL Normal 2.2-4.2 [facility] Comment on above: Performed By: #### L 500.4050, L500.4100 #### [facility] [address] [place], [address] Glucose [Mass/Vol] 105 mg/dL Normal 74-106 [facility] Comment on above: Result Comment: Fast ing Glucose result from 100 to 125 mg/dL suggests IMPAIRED HOMEOSTASIS per A.D.A. criteria. Performed By: #### L 500.4050, L500.4100 #### [facility] [address] [place], [address] Potassium [Moles/Vol] 4.0 mmol/L Normal 3.5-5.1 [facility] Comment on above: Performed By: #### L 500.4050, L500.4100 #### [facility] [address] [place], [address] Sodium [Moles/Vol] 138 mmol/L Normal 136-145 [facility] Comment on above: Performed By: #### L 500.4050, L500.4100 #### [facility] [address] [place], [address] T PROT 7.0 g/dL Normal 6.4-8.2 [facility] Comment on above: Performed By: #### L 500.4050, L500.4100 #### [facility] [address] [place], [address] Urea nitrogen [Mass/Vol] 13 mg/dL Normal 7-18 [facility] Comment on above: Performed By: #### L 500.4050, L500.4100 #### [facility] [address] [place], [address] Lipid Profileon 02-08-2024 Cholesterol [Mass/Vol] 236 mg/dL High [address] [facility] Comment on above: Result Comment: <200 mg/dL Desirable 200-240 mg/dL Borderline >240 mg/dL High Risk Performed By: #### L 500.4050, L500.4100 #### [facility] [address] [place], [address] Cholesterol in HDL [Mass/Vol] 80 mg/dL Normal [facility] Comment on above: Result Comment: The drugs N-Acetylcysteine and Metamizole may falsely depress this assay. Reference Range HDL <40 mg/dL Low HDL Cholesterol HDL >or= 60 mg/dL High HDL Cholesterol Performed By: #### L 500.4050, L500.4100 #### [facility] [address] [place], [address] Cholesterol in LDL [Mass/Vol] 81 mg/dL Normal 0-130 [facility] Comment on above: Performed By: #### L 500.4050, L500.4100 #### [facility] [address] [place], [address] Cholesterol in VLDL [Mass/Vol] 75 mg/dL High 5-40 [facility] Comment on above: Performed By: #### L 500.4050, L500.4100 #### [facility] [address] [place], [address] Triglyceride [Mass/Vol] 373 mg/dL High [facility] Comment on above: Result Comment: The drugs N-Acetylcysteine and Metamizole may falsely depress this assay. Serum Triglycerides Reference Interval Normal <150 mg/dL Borderline high 150 - 199 mg/dL High 200 - 499 mg/dL Very High > or = 500 mg/dL Performed By: #### L 500.4050, L500.4100 #### [facility] [address] [facility] [place], [address] Basophil percentageOrdered B y: Flip Leone on 03-18-2023 Bilirubin [Mass/Vol] 0.60 mg/dL 0.20-1.00 [facility] Comment on above: For patients on eltr ombopag therapy, use of Dimension Lolo TBIL is not recommended. Chloride [Moles/Vol] 104 mmol/L 98-107 [facility] Cholesterol [Mass/Vol] 194 mg/dL <[address] [facility] Comment on above: <200 mg/dL Desirable 200-240 mg/dL Borderline >240 mg/dL High Risk Glucose [Mass/Vol] 98 mg/dL 74-106 [facility] Potassium [Moles/Vol] 4.3 mmol/L 3.5-5.1 [facility] Protein [Mass/Vol] 7.2 g/dL 6.4-8.2 [facility] Sodium [Moles/Vol] 137 mmol/L 136-145 [facility] Triglyceride [Mass/Vol] 443 mg/dL <199 [facility] Comment on above: The drugs N-Acetylcy steine and Metamizole may falsely depress this assay. TRIGLYCERIDE IS GREATER THAN 400 mg/dL. LDL RESULT IS INVALID AND WILL NOT BE REPORTED.Serum Triglycerides Reference Interval Normal <150 mg/dL Borderline high 150 - 199 mg/dL High 200 - 499 mg/dL Very High > or = 500 mg/dL Cholesterol in LDL Direct as say [Mass/Vol]Ordered By: Flip Leone on 03-18-2023 Cholesterol in LDL [Mass/Vol] 78 mg/dL 0-99 [facility] Comment on above: Performed at: [facility] [id number] [place], [place] [id number] Director: Rodolfo Frederick PhD, Phone: [phone] Laboratory - Chemistry and C hemistry - challengeOrdered By: Flip Leone on 03-18-2023 ALP [Catalytic activity/Vol] 82 U/L 45-117 [facility] ALT [Catalytic activity/Vol] 75 U/L 13-56 [facility] CO2 [Moles/Vol] 26.0 mmol/L 21.0-32.0 [facility] Globulin (S) [Mass/Vol] 3.4 g/dL 2.2-4.2 [facility] Urea nitrogen/Creatinine [Mass ratio] 20.0 mg/mg 10-20 [facility] - Miscellaneous t estsOrdered By: Flip Leone on 03-18-2023 Service comment (Unsp spec) [Interp] TNP [facility] Comment on above: Test not performed No Panel InformationOrdered By: Flip Leone on 03-18-2023 Estimated GFR (MDRD) Amer 108 mL/min >60 [facility] Comment on above: GFR Calc Estimated GFR (MDRD) Non-Af Amer 90 mL/min >60 [facility] Comment on above: Non- GFR Calc Urine Microalbumin/Creatinin e Ratio 14.9 mg/g CRE <30 [facility] Serum or plasma albumin kiko urement (mass/volume)Ordered By: Flip Leone on 03-18-2023 Albumin [Mass/Vol] 3.8 g/dL 3.2-5.0 [facility] Serum or plasma albumin/glob ulin mass ratioOrdered By: Flip Leone on 03-18-2023 Albumin/Globulin [Mass ratio] 1.1 {ratio} 0.9-2.4 [facility] Serum or plasma calcium kiko urement (mass/volume)Ordered By: Flip Leone on 03-18-2023 Calcium [Mass/Vol] 8.9 mg/dL 8.5-10.1 [facility] Serum or plasma cholesterol in HDL measurement (mass/volume)Ordered By: Flip Leone on 03-18-2023 Cholesterol in HDL [Mass/Vol] 65 mg/dL >40 [facility] Comment on above: The drugs N-Acetylcy steine and Metamizole may falsely depress this assay. Reference Range HDL <40 mg/dL Low HDL Cholesterol HDL >or= 60 mg/dL High HDL Cholesterol Serum or plasma cholesterol in VLDL measurement (mass/volume)Ordered By: Flip Leone on 03-18-2023 Cholesterol in VLDL [Mass/Vol] [facility] Comment on above: Test not performed Serum or plasma creatinine m easurement (mass/volume)Ordered By: Flip Leone on 03-18-2023 Creatinine [Mass/Vol] 0.70 mg/dL 0.55-1.02 [facility] Comment on above: The validity of the calculated GFR & GFRAA in patients over 70 years has not been determined. Clinical correlation is essential. Serum or plasma low density lipoprotein (LDL) cholesterol measurement (mass/volume)Ordered By: Flip Leone on 03-18-2023 Cholesterol in LDL [Mass/Vol] [facility] Comment on above: Test not performed Serum or plasma urea nitroge n measurement (mass/volume)Ordered By: Flip Leone on 03-18-2023 Urea nitrogen [Mass/Vol] 14 mg/dL 7-18 [facility] Thin prep Papanicolaou smear with manual screeningOrdered By: Flip Leone on 03-18-2023 Thin prep Papanicolaou smear with manual screening 39 U/L 15-37 [facility] Thin prep Papanicolaou smear with manual screening 7 5-15 [facility] Thin prep Papanicolaou smear with manual screening 14.9 mg/L NO RANGE EST. [facility] Urine creatinine measurement (mass/volume)Ordered By: Flip Leone on 03-18-2023 Creatinine (U) [Mass/Vol] 99.80 mg/dL NO RANGE EST. [facility] CNOVon 10-28-2022 CNOV Office Visit (GENSWS ) GEO MCGUIRE ([id number]) 1960 F Date Time Provider Department 10/28/22 8:00 AM TYLER DANIELS During your visit today, we recorded the following information about you: Temperature Pulse Blood pressure Weight 97.8 degrees 77/minute 150/78 72.8 kg Height 1.702 m Tyler Daniels PA-C 10/29/2022 2:45 PM Signed FOLLOW UP VISIT - ENDOSCOPY NAME: Geo Mcguire CLINIC NO.: [id number] DATE OF SERVICE: 10/28/2022 : 1960 REFERRING PHYSICIAN: Flip Leone MD Geo is a patient I am following for family history of colon cancer and need for high-risk surveillance colonoscopy. Dr. Kirk performed lower endoscopy on 10/15/22. The patient was found to have non-bleeding internal hemorrhoids, sigmoid diverticulosis, and a small sigmoid colon polyp which was removed. Pathology demonstrated: FINAL DIAGNOSIS Sigmoid colon polyp, biopsy: - Tubular adenoma. JEL 10/18/2022 The patient notes no complaints since the procedure. VITALS: Blood pressure 150/78, pulse 77, temperature 36.6 ?C (97.8 ?F), height 170.2 cm (5' 7), weight 72.8 kg (160 lb 9.6 oz), [...] which included preparing to see the patient, [id number] patient care, completing clinical documentation, obtaining and/or reviewing separately obtained history, counseling and educating the patient/family/caregi jerrod, independently interpreting results (not separately reported), and communicating results to the patient/family/caregi jerrod. LUISA Lynne PA-C 10/28/2022 8:30 AM Signed The following instructions are important for you related to your office visit today with the [facility]. INSTRUCTIONS FOLLOWING A POLYP FOUND [...] you should contact our office immediately @ [phone] and ask to be transferred to the General Surgery department. Referring Provider: IZA KIRK [[id number]] Allergies As of Date: 10/28/2022 (No Known Allergies) Date Reviewed: 10/28/2022 Reviewed by: Tyler Daniels PA-C - Fully Assessed Reason for Visit: Follow Up [171] Cmt: colonoscopy Primary Visit Diagnosis:Family history of colon cancer [Z80.0] Other Visit Diagnoses:Tubular adenoma [D36.9] Diverticulosis [K57.90] Prescriptions as of 10/29/2022 - cholecalciferol, vitamin D3, 1,250 mcg (50,000 unit) tab Take by mouth. - ezetimibe (ZETIA) 10 mg tablet Take 10 mg by mouth daily at bedtime. - icosapent ethyl (VASCEPA) 1 gram capsule Take by mouth. - lisinopril (ZESTRIL, PRINIVIL) 10 mg tablet Take 10 mg by mouth once daily. - rosuvastatin (CRESTOR) 10 mg tablet Take 10 mg by mouth once daily. - CALCIUM PHOSPHATE DIBAS/VIT D3 (VITAMIN D, WITH CALCIUM, ORAL) Take by mouth. Problem List As Of Date 10/28/2022 Noted Resolved Mixed Hyperlipidemia [E78.2] Family history of colon cancer [Z80.0] 07/21/2009 Other instructions from your clinician: The following instructions are important for you related to your office v (more content not included)... Normal [facility] Colonoscopyon 10-15-2022 Colonoscopy [place] [facility] Gastrointestinal Endoscopy Patient Name: Geo Mcguire Procedure Date: 10/15/2022 9:29 AM Date of : 1960 Admit Type: Outpatient Age: 61 Gender: Female Note Status: Finalized Procedure: Colonoscopy Indications: Screening in patient at increased risk: Colorectal cancer in brother before age 60 Providers: Iza Kirk MD Patient Profile: Refer to note in patient chart for documentation of history and physical. Last Colonoscopy: 5 years ago. Referring Physician: Tyler Daniels (pa) (Referring MD) Medicines: Midazolam 7 mg IV, Fentanyl 50 micrograms IV, Diphenhydramine 50 mg IV Complications: No immediate complications. Requesting Provider: Procedure: Pre-Anesthesia Assessment: - Prior to the procedure, a History and Physical was performed, and patient medications and allergies were reviewed. The patient is competent. The risks and benefits of the procedure and the sedation options and risks were discussed with the patient. All questions were answered and informed consent was obtained. Patient identification and proposed procedure were verified by the physician in the pre-procedure area. Mental Status Examination: alert and oriented. Airway Examination: normal oropharyngeal airway and neck mobility. Respiratory Examination: clear to auscultation. CV Examination: normal. Prophylactic Antibiotics: The patient does not require prophylactic antibiotics. Prior Anticoagulants: The patient has taken no anticoagulant or antiplatelet agents. ASA Grade Assessment: II - A patient with mild systemic disease. After reviewing the risks and benefits, the patient was deemed in satisfactory condition to undergo the procedure. The anesthesia plan was to use moderate sedation / analgesia (conscious sedation). Immediately prior to administration of medications, the patient was re-assessed for adequacy to receive sedatives. The heart rate, respiratory rate, oxygen saturations, blood pressure, adequacy of pulmonary ventilation, and response to care were monitored throughout the procedure. The physical status of the patient was re-assessed after the procedure. After I obtained informed consent, the scope was passed under direct vision. Throughout the procedure, the patient's blood pressure, pulse, and oxygen saturations were monitored continuously. The Colonoscope was introduced through the anus and advanced to the cecum, identified by the appendiceal orifice, ileocecal valve and palpation. The colonoscopy was performed without difficulty. The patient tolerated the procedure well. The quality of the bowel preparation was suboptimal. There was still retained fecal material which required lavage and aspiration to visualize the oreilly adequately. This was done, but took some time, however, the orielly were visualized adequately. The appendiceal orifice and the rectum were photographed. Moderate Sedation: The administration of moderate sedation was initiated at 09:37 AM. Moderate (conscious) sedation was personally administered by the endoscopist. The following parameters were monitored: oxygen saturation, heart rate, blood pressure, respiratory rate, EKG, adequacy of pulmonary ventilation, and response to care. Total physician intraservice time was 23 minutes. Findings: The perianal and digital rectal examinations were normal. Non-bleeding internal hemorrhoids were found. Multiple small and large-mouthed diverticula were found in the sigmoid colon. A 1 to 2 mm polyp was found in the sigmoid colon. The polyp was sessile. The polyp was removed with a cold biopsy forceps. Resection and retrieval were complete. Verification of patient identification for the specimen was done by the nurse. Estimated blood loss was minimal. Impression: - Non-bleeding internal hemorrhoids. - Diverticulosis in the sigmoid colon. - One 1 to 2 mm polyp in the sigmoid colon, removed with a cold biopsy forceps. Resected and retrieved. Recommendation: - Repeat colonoscopy date to be determined after pending pathology results are reviewed for surveillance based on pathology results. - Follow up with Tyler Daniels PA-C via televisit for discussion of pathology results and determination of timing of future endoscopies - Patient has a contact number available for emergencies. The signs and symptoms of potential delayed complications were discussed with the patient. Return to normal activities tomorrow. Written discharge instructions were provided to the patient. - Continue present medications. - Resume previous diet. Procedure Code(s): --- Professional --- 33598, Colonoscopy, flexible; with biopsy, single or multiple 48460, 59, Moderate sedation services provided by the same physician or other qualified health coronary care unit nurse performing the diagnostic or therapeutic service that the sedation supports, requiring the presence of an in (more content not included)... Normal [facility] HISTORY PHYSICALon HISTORY PHYSICAL HNO ID: [id number] Author: Iza Kirk MD Service: General Surgery Author Type: Physician Type: HANDP Filed: 10/15/2022 9:39 AM Note Text: HISTORY AND PHYSICAL Geo [...] sedation in the past. PAST MEDICAL HISTORY PAST MEDICAL HISTORY Diagnosis Date Benign neoplasm of colon Diverticulosis of colon (without mention of hemorrhage) Family history of malignant neoplasm of gastrointestinal tract Hypertension Internal hemorrhoids without mention of complication Mixed hyperlipidemia Skin cancer specific type not recalled - on face PAST SURGICAL HISTORY PAST SURGICAL HISTORY Procedure Laterality Date COLONOSCOPY FLX DX W/COLLJ SPEC WHEN PFRMD 01/12/99 Colonoscopy COLONOSCOPY FLX DX W/COLLJ SPEC WHEN PFRMD 08/02/03 Colonoscopy COLONOSCOPY FLX DX W/COLLJ SPEC WHEN PFRMD 06/08/2013 Colonoscopy COLONOSCOPY FLX DX W/COLLJ SPEC WHEN PFRMD 07/22/2017 Colonoscopy COLONOSCOPY W/BIOPSY SINGLE/MULTIPLE 10/10/09 MOHS MICROGRAPHIC H/N/H/F/G 1ST STAGE 5 BLOCKS CURRENT MEDICATIONS Current Outpatient Medications Medication Sig cholecalciferol, vitamin [...] Patient has no known allergies. PERSONAL HISTORY: SOCIAL HISTORY Social History Tobacco Use Smoking status: Never Smokeless tobacco: Never Vaping Use Vaping Use: Never used Substance Use Topics Alcohol use: Yes Alcohol/week: 5.0 standard drinks Types: 2 Cans of Beer (12oz) per week Comment: daily Drug use: No FAMILY HISTORY: FAMILY HISTORY FAMILY HISTORY Problem Relation Age of Onset Colon Cancer Sister Diagnosed at age 48 Colon Cancer Brother of the disease at age 38 REVIEW OF SYMPTOMS: The review of systems data was entered by the nurse and reviewed by wy Nursing Notes: Jordyn Scott RN 09/27/2022 8:18 [...] history of measles and mumps, denies rheumatic fever (more content not included)... Normal [facility] SURGICAL PATHOLOGYon 023 CASE REPORT Normal [facility] Comment on above: Order Comment: Speci men Type: TISSUE SPECIMEN Ordering Facility: [facility] Address: [address] [place] [address] Result Comment: Surg [facility] Pathology Report Case: [id number] Authorizing Provider: Iza Kirk MD Collected: 10/15/2022 09:59 AM Ordering Location: Ambulatory Surgery Received: 10/15/2022 01:21 PM Pathologist: Hugh Goldstein MD Specimen: SIGMOID COLON POLYP Performed By: #### S #### [facility] CLIA [id number] [address] [place] [address] FINAL DIAGNOSIS Normal [facility] Comment on above: Order Comment: Speci men Type: TISSUE SPECIMEN Ordering Facility: [facility] Address: [address] [place] [address] Result Comment: Sigm oid colon polyp, biopsy: - Tubular adenoma. JEL 10/18/2022 Performed By: #### S #### [facility] CLIA [id number] [address] [place] [address] FINAL PERFORMING LAB Normal [facility] Comment on above: Order Comment: Speci men Type: TISSUE SPECIMEN Ordering Facility: [facility] Address: [address] [place] [address] Result Comment: Diag nostic interpretation performed at [facility], [address] [place] [address] [place] [address] CLIA# [id number] Deicer Finisher: Zack Gutierrez M.D. Performed By: #### S #### [facility] CLIA [id number] [address] [place] [address] OF [facility] GROSS DESCRIPTION Normal [facility] Comment on above: Order Comment: Speci men Type: TISSUE SPECIMEN Ordering Facility: [facility] Address: [address] [place] [address] Result Comment: A. S IGMOID COLON POLYP Received in formalin is one piece of leonard, soft tissue measuring 0.4 x 0.3 x 0.2 cm. Totally submitted in one cassette. SS October 15, 2022 11:21 PM Gross examination performed at [facility], [address] [place] [address] Performed By: #### S #### [facility] CLIA [id number] [address] [place] [address] OF [facility] CNOVon 09-27-2022 CNOV Office Visit (GENSWS ) GEO MCGUIRE ([id number]) 1960 F Date Time Provider Department 09/27/22 8:00 AM TYLER DANIELS During your visit today, we recorded the following information about you: Temperature Pulse Blood pressure Weight 97.1 degrees 85/minute 136/70 73 kg Height 1.702 m Tyler Daniels PA-C 09/27/2022 8:29 AM Signed HISTORY AND PHYSICAL Geo Mcguire [...] entered by the nurse and reviewed by wy Nursing Notes: Jordyn Scott RN 09/27/2022 8:18 [...] hormonal problems. Hematologic: The patient denies a (more content not included)... Normal [facility] Basophil percentageOrdered B y: Flip Leone on 09-09-2022 Bilirubin [Mass/Vol] 0.30 mg/dL 0.20-1.00 [facility] Comment on above: For patients on eltr ombopag therapy, use of Dimension Lolo TBIL is not recommended. Chloride [Moles/Vol] 109 mmol/L 98-107 [facility] Cholesterol [Mass/Vol] 240 mg/dL <[address] [facility] Comment on above: <200 mg/dL Desirable 200-240 mg/dL Borderline >240 mg/dL High Risk Glucose [Mass/Vol] 99 mg/dL 74-106 [facility] Potassium [Moles/Vol] 4.2 mmol/L 3.5-5.1 [facility] Protein [Mass/Vol] 6.7 g/dL 6.4-8.2 [facility] Sodium [Moles/Vol] 139 mmol/L 136-145 [facility] Triglyceride [Mass/Vol] 700 mg/dL <199 [facility] Comment on above: The drugs N-Acetylcy steine and Metamizole may falsely depress this assay. TRIGLYCERIDE IS GREATER THAN 400 mg/dL. LDL RESULT IS INVALID AND WILL NOT BE REPORTED.Serum Triglycerides Reference Interval Normal <150 mg/dL Borderline high 150 - 199 mg/dL High 200 - 499 mg/dL Very High > or = 500 mg/dL Laboratory - Chemistry and C hemistry - challengeOrdered By: Flip Leone on 09-09-2022 ALP [Catalytic activity/Vol] 73 U/L 45-117 [facility] ALT [Catalytic activity/Vol] 46 U/L 13-56 [facility] CO2 [Moles/Vol] 25.0 mmol/L 21.0-32.0 [facility] Globulin (S) [Mass/Vol] 3.4 g/dL 2.2-4.2 [facility] Urea nitrogen/Creatinine [Mass ratio] 21.2 mg/mg 10-20 [facility] No Panel InformationOrdered By: Flip Leone on 09-09-2022 Estimated GFR (MDRD) Amer 116 mL/min >60 [facility] Comment on above: GFR Calc Estimated GFR (MDRD) Non-Af Amer 96 mL/min >60 [facility] Comment on above: Non- GFR Calc Urine Microalbumin/Creatinin e Ratio 9.2 mg/g CRE <30 [facility] Serum or plasma albumin kiko urement (mass/volume)Ordered By: Flip Leone on 09-09-2022 Albumin [Mass/Vol] 3.3 g/dL 3.2-5.0 [facility] Serum or plasma albumin/glob ulin mass ratioOrdered By: Flip Leone on 09-09-2022 Albumin/Globulin [Mass ratio] 1.0 {ratio} 0.9-2.4 [facility] Serum or plasma calcium kiko urement (mass/volume)Ordered By: Flip Leone on 09-09-2022 Calcium [Mass/Vol] 8.6 mg/dL 8.5-10.1 [facility] Serum or plasma cholesterol in HDL measurement (mass/volume)Ordered By: Flip Leone on 09-09-2022 Cholesterol in HDL [Mass/Vol] 56 mg/dL >40 [facility] Comment on above: The drugs N-Acetylcy steine and Metamizole may falsely depress this assay. Reference Range HDL <40 mg/dL Low HDL Cholesterol HDL >or= 60 mg/dL High HDL Cholesterol Serum or plasma cholesterol in VLDL measurement (mass/volume)Ordered By: Flip Leone on 09-09-2022 Cholesterol in VLDL [Mass/Vol] [facility] Comment on above: Test not performed Serum or plasma creatinine m easurement (mass/volume)Ordered By: Flip Leone on 09-09-2022 Creatinine [Mass/Vol] 0.66 mg/dL 0.55-1.02 [facility] Comment on above: The validity of the calculated GFR & GFRAA in patients over 70 years has not been determined. Clinical correlation is essential. Serum or plasma low density lipoprotein (LDL) cholesterol measurement (mass/volume)Ordered By: Flip Leone on 09-09-2022 Cholesterol in LDL [Mass/Vol] [facility] Comment on above: Test not performed Serum or plasma urea nitroge n measurement (mass/volume)Ordered By: Flip Leone on 09-09-2022 Urea nitrogen [Mass/Vol] 14 mg/dL 7-18 [facility] Thin prep Papanicolaou smear with manual screeningOrdered By: Flip Leone on 09-09-2022 Thin prep Papanicolaou smear with manual screening 41 U/L 15-37 [facility] Thin prep Papanicolaou smear with manual screening 5 5-15 [facility] Thin prep Papanicolaou smear with manual screening 6.8 mg/L NO RANGE EST. [facility] Urine creatinine measurement (mass/volume)Ordered By: Flip Leone on 09-09-2022 Creatinine (U) [Mass/Vol] 74.50 mg/dL NO RANGE EST. [facility] Basophil percentageon 2021 Bilirubin [Mass/Vol] 0.20 mg/dL 0.20-1.00 [facility] Work Phone: Comment on above: For patients on eltr ombopag therapy, use of Dimension Lolo TBIL is not recommended. Protein [Mass/Vol] 6.8 g/dL 6.4-8.2 [facility] Work Phone: Direct bilirubinon Bilirubin.direct [Mass/Vol] 0.12 mg/dL 0.00-0.30 [facility] Work Phone: Laboratory - Chemistry and C hemistry - challengeon 12-10-2021 ALP [Catalytic activity/Vol] 74 U/L 45-117 [facility] Work Phone: ALT [Catalytic activity/Vol] 66 U/L 13-56 [facility] Work Phone: Globulin (S) [Mass/Vol] 3.4 g/dL 2.2-4.2 [facility] Work Phone: Serum or plasma C reactive p rotein measurement (mass/volume)on 12-10-2021 CRP [Mass/Vol] mg/L 0.0-3.0 [facility] Work Phone: Comment on above: C-Reactive Protein ( CRP) provides useful information for thediagnosis, therapy and monitoring of inflammatory processesand associated diseases. For the evaluation of Relative Riskfor Cardiovascular Disease, a High Sensitivity CRP (HSCRP)should be ordered. Serum or plasma albumin kiko urement (mass/volume)on 12-10-2021 Albumin [Mass/Vol] 3.4 g/dL 3.2-5.0 [facility] Work Phone: Thin prep Papanicolaou smear with manual screeningon 12-10-2021 Thin prep Papanicolaou smear with manual screening 48 U/L 15-37 [facility] Work Phone: Absolute lymphocyte counton 11-16-2021 Lymphocytes Auto (Unsp spec) [#/Vol] 1.86 10*3/uL 0.83-4.51 [facility] Work Phone: Basophil percentageon 2021 Basophils/100 WBC (Bld) 0.9 % 0-1 [facility] Work Phone: Bilirubin [Mass/Vol] 0.40 mg/dL 0.20-1.00 [facility] Work Phone: Comment on above: For patients on eltr ombopag therapy, use of Dimension Lolo TBIL is not recommended. Chloride [Moles/Vol] 105 mmol/L 98-107 [facility] Work Phone: Eosinophils/100 WBC (Bld) 2.9 % 0-5 [facility] Work Phone: Glucose [Mass/Vol] 105 mg/dL 74-106 [facility] Work Phone: Comment on above: Fasting Glucose resu lt from 100 to 125 mg/dL suggests IMPAIRED HOMEOSTASIS per A.D.A. criteria. Neutrophils (Bld) [#/Vol] 3.1 10*3/uL 2.0-7.7 [facility] Work Phone: Neutrophils/100 WBC (Bld) 54.4 % 47-70 [facility] Work Phone: Potassium [Moles/Vol] 4.1 mmol/L 3.5-5.1 [facility] Work Phone: Protein [Mass/Vol] 7.0 g/dL 6.4-8.2 [facility] Work Phone: Sodium [Moles/Vol] 139 mmol/L 136-145 [facility] Work Phone: WBC (Bld) [#/Vol] 5.6 10*3/uL 4.4-11.0 [facility] Work Phone: Blood erythrocytes count (nu mber/volume)on 11-16-2021 RBC (Bld) [#/Vol] 4.16 10*6/uL 4.2-5.4 [facility] Work Phone: Blood hemoglobin measurement (mass/volume)on 11-16-2021 Hemoglobin (Bld) [Mass/Vol] 12.6 g/dL 12.0-15.0 [facility] Work Phone: [phone] Blood lymphocytes/100 leukoc yteson 11-16-2021 Lymphocytes/100 WBC (Bld) 33.2 % 19-41 [facility] Work Phone: [phone] Blood monocytes/100 leukocyt eson 11-16-2021 Monocytes/100 WBC (Bld) 8.4 % 0-10 [facility] Work Phone: [phone] Blood platelet mean volumeon 11-16-2021 Platelet mean volume (Bld) [Entitic vol] 9.0 fL 6.2-12.0 [facility] Work Phone: [phone] Determination of erythrocyte mean corpuscular volume (MCV)on 11-16-2021 MCV (RBC) [Entitic vol] 90.9 fL 81-99 [facility] Work Phone: [phone] Hematocrit Auto (Bld) [Volum e fraction]on 11-16-2021 Hematocrit (Bld) [Volume fraction] 37.8 % 37-47 [facility] Work Phone: [phone] Laboratory - Chemistry and C hemistry - challengeon 11-16-2021 ALP [Catalytic activity/Vol] 94 U/L 45-117 [facility] Work Phone: [phone] ALT [Catalytic activity/Vol] 89 U/L 13-56 [facility] Work Phone: [phone] Amylase [Catalytic activity/Vol] 154 U/L 5-55 [facility] Work Phone: [phone] CO2 [Moles/Vol] 30.0 mmol/L 21.0-32.0 [facility] Work Phone: [phone] Globulin (S) [Mass/Vol] 4.0 g/dL 2.2-4.2 [facility] Work Phone: [phone] Lipase [Catalytic activity/Vol] 67 U/L 73-393 [facility] Work Phone: [phone] Urea nitrogen/Creatinine [Mass ratio] 21.5 mg/mg 10-20 [facility] Work Phone: [phone] Laboratory - Hematology and Cell countson 11-16-2021 Erythrocyte distribution width (RBC) [Entitic vol] 40.8 fL 35.1-43.9 [facility] Work Phone: [phone] Erythrocyte distribution width (RBC) [Ratio] 12.2 % 11.6-14.6 [facility] Work Phone: [phone] Immature granulocytes/100 WBC (Bld) 0.200 % 0.0-0.9 [facility] Work Phone: [phone] Comment on above: IG% - Immature Granu locytes (promyelocytes, myelocytes and metamyelocytes) > 1% indicates that a LEFT SHIFT is Present. MCH (RBC) [Entitic mass] 30.3 pg 27.0-32.0 [facility] Work Phone: [phone] Nucleated RBC/100 WBC (Bld) [Ratio] 0 % 0-5 [facility] Work Phone: [phone] MCHC Auto (RBC) [Mass/Vol]on 11-16-2021 MCHC (RBC) [Mass/Vol] 33.3 g/dL 32-36 [facility] Work Phone: [phone] Panel Informationon 11-16 Estimated GFR (MDRD) Amer 118 mL/min >60 [facility] Work Phone: [phone] Comment on above: GFR Calc Estimated GFR (MDRD) Non-Af Amer 98 mL/min >60 [facility] Work Phone: [phone] Comment on above: Non- GFR Calc Platelets bldon 11-16-2021 Platelets (Bld) [#/Vol] 268 10*3/uL 150-450 [facility] Work Phone: [phone] Serum or plasma C reactive p rotein measurement (mass/volume)on 11-16-2021 CRP [Mass/Vol] 17.50 mg/L 0.0-3.0 [facility] Work Phone: Comment on above: C-Reactive Protein ( CRP) provides useful information for thediagnosis, therapy and monitoring of inflammatory processesand associated diseases. For the evaluation of Relative Riskfor Cardiovascular Disease, a High Sensitivity CRP (HSCRP)should be ordered. Serum or plasma albumin kiko urement (mass/volume)on 11-16-2021 Albumin [Mass/Vol] 3.0 g/dL 3.2-5.0 [facility] Work Phone: [phone] Serum or plasma albumin/glob ulin mass ratioon 11-16-2021 Albumin/Globulin [Mass ratio] 0.8 {ratio} 0.9-2.4 [facility] Work Phone: [phone] Serum or plasma calcium kiko urement (mass/volume)on 11-16-2021 Calcium [Mass/Vol] 9.5 mg/dL 8.5-10.1 [facility] Work Phone: [phone] Serum or plasma creatinine m easurement (mass/volume)on 11-16-2021 Creatinine [Mass/Vol] 0.65 mg/dL 0.55-1.02 [facility] Work Phone: Comment on above: The validity of the calculated GFR & GFRAA in patients over 70 years has not been determined. Clinical correlation is essential. Serum or plasma urea nitroge n measurement (mass/volume)on 11-16-2021 Urea nitrogen [Mass/Vol] 14 mg/dL 7-18 [facility] Work Phone: [phone] Thin prep Papanicolaou smear with manual screeningon 11-16-2021 Thin prep Papanicolaou smear with manual screening 50 U/L 15-37 [facility] Work Phone: [phone] Thin prep Papanicolaou smear with manual screening 4 5-15 [facility] Work Phone: [phone] Panel Informationon 08-03 Hepatitis C Antibody Non-Reactive Nonreactive W [facility] Work Phone: [phone] Comment on above: Non Reactive: < 0.8 Equivocal: >/= 0.8 to < 1.0 Reactive: >/= 1.0The CDC recommends that a reactive/equivocal HCV antibody result be followed up by the HCV Nucleic Acid Amplificationtest (635897) Serum or plasma actin IgG an tibody assay (units/volume)on 08-03-2021 Actin IgG Qn 4 Units 0-19 [facility] Work Phone: Comment on above: Negative 0 - 19 Weak positive 20 - 30 Moderate to strong positive >30 Actin Antibodies are found in 52-85% of patients with autoimmune hepatitis or chronic active hepatitis and in 22% of patients with primary biliary cirrhosis.Performed at: [employer] [id number] Director: Rodolfo Frederick PhD, Phone: [phone] Basophil percentageon 2021 Bilirubin [Mass/Vol] 0.40 mg/dL 0.20-1.00 [facility] Work Phone: [phone] Comment on above: For patients on eltr ombopag therapy, use of Dimension Lolo TBIL is not recommended. Chloride [Moles/Vol] 107 mmol/L 98-107 [facility] Work Phone: [phone] Glucose [Mass/Vol] 98 mg/dL 74-106 [facility] Work Phone: [phone] Potassium [Moles/Vol] 4.3 mmol/L 3.5-5.1 [facility] Work Phone: [phone] Protein [Mass/Vol] 6.6 g/dL 6.4-8.2 [facility] Work Phone: [phone] Sodium [Moles/Vol] 138 mmol/L 136-145 [facility] Work Phone: [phone] Laboratory - Chemistry and C hemistry - challengeon 07-24-2021 ALP [Catalytic activity/Vol] 65 U/L 45-117 [facility] Work Phone: [phone] ALT [Catalytic activity/Vol] 86 U/L 13-56 [facility] Work Phone: [phone] Amylase [Catalytic activity/Vol] 109 U/L 5-55 [facility] Work Phone: CO2 [Moles/Vol] 25.0 mmol/L 21.0-32.0 [facility] Work Phone: [phone] Globulin (S) [Mass/Vol] 3.0 g/dL 2.2-4.2 [facility] Work Phone: Urea nitrogen/Creatinine [Mass ratio] 23.3 mg/mg 10-20 [facility] Work Phone: No Panel Informationon 07-24 Estimated GFR (MDRD) Amer 111 mL/min >60 [facility] Work Phone: Comment on above: GFR Calc Estimated GFR (MDRD) Non-Af Amer 92 mL/min >60 [facility] Work Phone: Comment on above: Non- GFR Calc Serum or plasma albumin kiko urement (mass/volume)on 07-24-2021 Albumin [Mass/Vol] 3.6 g/dL 3.2-5.0 [facility] Work Phone: Serum or plasma albumin/glob ulin mass ratioon 07-24-2021 Albumin/Globulin [Mass ratio] 1.2 {ratio} 0.9-2.4 [facility] Work Phone: Serum or plasma calcium kiko urement (mass/volume)on 07-24-2021 Calcium [Mass/Vol] 8.9 mg/dL 8.5-10.1 [facility] Work Phone: [phone] Serum or plasma creatinine m easurement (mass/volume)on 07-24-2021 Creatinine [Mass/Vol] 0.69 mg/dL 0.55-1.02 [facility] Work Phone: Comment on above: The validity of the calculated GFR & GFRAA in patients over 70 years has not been determined. Clinical correlation is essential. Serum or plasma urea nitroge n measurement (mass/volume)on 07-24-2021 Urea nitrogen [Mass/Vol] 16 mg/dL 7-18 [facility] Work Phone: Thin prep Papanicolaou smear with manual screeningon 07-24-2021 Thin prep Papanicolaou smear with manual screening 55 U/L 15-37 [facility] Work Phone: Thin prep Papanicolaou smear with manual screening 6 5-15 [facility] Work Phone: Vital Signs Date Time Vital Sign Value Performing Clinician Facility 10-28-2022 07:53-0400 Body height 170.2 cm Tyler [place] PA-C Work Phone: [facility] 10-28-2022 07:53-0400 Body temperature 97.81 [degF] Tyler [place] PA-C Work Phone: [facility] 10-28-2022 07:53-0400 Body weight 72.85 kg Tyler [place] PA-C Work Phone: [facility] 10-28-2022 07:53-0400 Diastolic blood pressure 78 mm[Hg] Tyler [place] PA-C Work Phone: [facility] 10-28-2022 07:53-0400 Heart rate 77 /min Tyler [place] PA-C Work Phone: [facility] 10-28-2022 07:53-0400 SaO2% (BldA) [Mass fraction] 96 % Tyler Jeremiah PA-C Work Phone: [facility] 10-28-2022 07:53-0400 Systolic blood pressure 150 mm[Hg] Tyler [place] PA-C Work Phone: [facility] 12-10-2021 08:21-0400 Body height 170.[address] Flip Leone Work Phone: [facility] Work Phone: 12-10-2021 08:21-0400 Body mass index (BMI) [Ratio] 24.9 kg/m2 Dr. Flip Leone Work Phone: [facility] Work Phone: 12-10-2021 08:21-0400 Body temperature 97.8 [degF] Dr. Flip Leone Work Phone: [facility] Work Phone: 12-10-2021 08:21-0400 Body weight 72.[address] Flip Leone Work Phone: [facility] Work Phone: 12-10-2021 08:21-0400 Diastolic blood pressure 88 mm[Hg] Dr. Flip Leone Work Phone: [facility] Work Phone: 12-10-2021 08:21-0400 Heart rate 78 /min Dr. Flip Leone Work Phone: [facility] Work Phone: 12-10-2021 08:21-0400 Respiratory rate 17 /min Dr. Flip Leone Work Phone: [facility] Work Phone: 12-10-2021 08:21-0400 SaO2% (BldA) [Mass fraction] 98 % Dr. Flip Leone Work Phone: [facility] Work Phone: 12-10-2021 08:21-0400 Systolic blood pressure 148 mm[Hg] Dr. Flip Leone Work Phone: [facility] Work Phone: Encounters Encounter Date Encounter Type Care Provider Facility Start: 04-30-2024 End: 04-30-2024 ambulatory Flip Leone Facility:[facility] Start: 02-08-2024 End: 02-08-2024 ambulatory Rodolfo Palacios Facility:[facility] Start: 05-04-2023 End: 05-04-2023 ambulatory [facility] Work Phone: Start: 05-04-2023 End: 05-04-2023 Patient encounter procedure [facility]-Ultrasound, [facility] Work Phone: Start: 03-28-2023 End: 03-28-2023 ambulatory [facility] Work Phone: Start: 03-28-2023 End: 03-28-2023 Patient encounter procedure [facility]-Outpatient Breast Imaging Work Phone: Start: 03-18-2023 End: 03-18-2023 ambulatory [facility] Work Phone: Start: 03-18-2023 End: 03-18-2023 Patient encounter procedure [facility] Start: 10-28-2022 End: 10-28-2022 ambulatory FLIP LEONE Facility:[facility] Start: 10-28-2022 End: 10-28-2022 Patient encounter procedure Tyler Daniels PA-C Work Phone: General Surgery Comment on above: Family history of co lennie cancer (Primary Dx); Tubular adenoma; Diverticulosis Start: 10-15-2022 End: 10-15-2022 ambulatory TYLER DANIELS Facility:[facility] Start: 09-27-2022 End: 09-28-2022 ambulatory TYLER DANIELS Facility:[facility] Start: 09-09-2022 End: 09-09-2022 ambulatory [facility] Work Phone: Start: 09-09-2022 End: 09-09-2022 Patient encounter procedure [facility] Work Phone: Start: 12-15-2021 End: 12-15-[address] Flip Leone Work Phone: [facility] Work Phone: Start: 12-15-2021 End: 12-15-[address] Flip Leone Work Phone: [facility] Start: 12-10-2021 End: 12-10-[address] Flip Leone Work Phone: [facility] Work Phone: Start: 12-10-2021 End: 12-10-[address] Flip Leone Work Phone: [facility] Start: 11-24-2021 End: 11-24-2021 Patient encounter procedure [facility]-Cat Scan, [facility] Start: 11-16-2021 End: 11-16-2021 Patient encounter procedure [facility]-Laboratory, [facility] Start: 08-03-2021 End: 08-03-2021 Patient encounter procedure [facility] Start: 07-24-2021 End: 07-24-2021 Patient encounter procedure [facility]Laboratory, [facility] Procedures Date Procedure Procedure Detail Performing Clinician Start: 03-28-2023 Screening mammography Start: 10-15-2022 Colonoscopy Tyler Daniels PA-C Work Phone: Start: 12-15-2021 US scan of gallbladder Dr. Flip Leone Work Phone: Start: 12-15-[address] Flip Leone Work Phone: Start: 11-24-2021 CT of abdomen with contrast Plan of Treatment Date Care Activity Detail Author Start: 10-16-2027 Colonoscopy COLONOSCOPY [facility] Start: 10-16-2027 COLORECTAL CANCER SCREENING COLORECTAL CANCER SCREENING [facility] Start: 05-04-2023 Ultrasonography of abdomen Abdomen [facility] Start: 05-04-[address] [facility] Start: 12-17-2022 Influenza vaccination INFLUENZA (#1) [facility] Start: 04-18-2022 DEPRESSION ASSESSMENT DEPRESSION ASSESSMENT [facility] Start: 06-30-2021 COVID-19 VACCINE (4 - Pfizer series) COVID-19 VACCINE (4 - Pfizer series) [facility] Start: 2008 SHINGRIX VACCINE (1 of 2) SHINGRIX VACCINE (1 of 2) [facility] Start: 11-10-2003 COLOGUARD (FIT-DNA) COLOGUARD (FIT-DNA) [facility] Start: 11-10-[address] COLONOGRAPHY [facility] Start: 11-10-2003 DIABETES SCREEN DIABETES SCREEN [facility] Start: 11-10-2003 FECAL OCCULT BLOOD FECAL OCCULT BLOOD [facility] Start: 11-10-2003 LIPID SCREEN LIPID SCREEN [facility] Start: 11-10-2003 SIGMOIDOSCOPY SIGMOIDOSCOPY [facility] Start: 1998 Mammography MAMMOGRAM [facility] Start: 1988 HPV TESTING HPV TESTING [facility] Start: 11-10-1979 PAP TESTING PAP TESTING [facility] Start: 1977 Urine microalbumin profile DTAP,TDAP,TD (1 - Tdap) [facility] Start: 1976 HEPATITIS C SCREENING HEPATITIS C SCREENING [facility] Start: 1976 HIV SCREENING HIV SCREENING [facility] Payers Date Payer Category Payer Self-pay [id number] 2021 Unknown [employer] PPO [id number] 2021-Present [phone] [address] [place] [address] PPO [id number] 2016 Unknown [id number] Unknown [facility] PACKAGE PLAN [id number] Unknown [id number] Unknown [id number] Social History Date Type Detail [facility] Work Phone: Start: 1960 Sex Assigned At Female W [facility] Start: 12-10-2021 End: 12-10-2021 Tobacco smoking status NHIS Unknown if ever smoked [facility] Start: 09-27-2022 [facility] Start: 09-27-2022 Tobacco use and exposure Smokeless tobacco non-user [facility] Start: 10-28-2022 Alcohol intake Current drinke r of alcohol (finding) [facility] Start: 03-23-2020 End: 07-13-2023 Alcohol intake [facility] Start: 03-23-2020 End: 10-28-2022 Tobacco use panel [facility] National Score (1-100), lower number is lower risk Not on file [facility] Start: 07-22-2017 [facility] Start: 1960 Sex Assigned At Not on file C [facility] Progress note 10-28-2022 Note Date & Type Note Facility 10-28-2022 Note HNO ID: [id number] Author: Tyler Daniels PA-C Service: ? Author Type: Physician Fuel Verification Technician Type: Progress Notes Filed: 10/29/2022 2:45 PM Note Text: FOLLOW UP VISIT - ENDOSCOPY NAME: Geo Mcguire [facility] NO.: [id number] DATE OF SERVICE: 10/28/2022 : 1960 REFERRING PHYSICIAN: Flip Leone MD Geo is a patient I am following for family history of colon cancer and need for high-risk surveillance colonoscopy. Dr. Kirk performed lower endoscopy on 10/15/22. The patient was found to have non-bleeding internal hemorrhoids, sigmoid diverticulosis, and a small sigmoid colon polyp which was removed. Pathology demonstrated: FINAL DIAGNOSIS Sigmoid colon polyp, biopsy: - Tubular adenoma. JEL 10/18/2022 The patient notes no complaints since the procedure. VITALS: Blood pressure 150/78, pulse 77, temperature 36.6 ?C (97.8 ?F), height 170.2 cm (5' 7), weight 72.8 kg (160 lb 9.6 oz), [...] which included preparing to see the patient, [id number] patient care, completing clinical documentation, obtaining and/or reviewing separately obtained history, counseling and educating the patient/family/caregiver, independently interpreting results (not separately reported), and communicating results to the patient/family/caregiver. Tyler Daniels PA-C [facility] Instructions 10-28-2022 Patient Instructions Note Date & Type Note Facility 10-28-2022 Instructions Tyler Daniels PA-C - 10/28/2022 8:30 AM EDT The following instructions are important for you related to your office visit today with the [facility]. INSTRUCTIONS FOLLOWING A POLYP FOUND [...] you should contact our office immediately @ [phone] and ask to be transferred to the General Surgery department. documented in this encounter [facility] History of Present illness Narrative 10-28-2022 Tyler Daniels PA-C - 10/28/2022 8:21 AM EDT Note Date & Type Note Facility 10-28-2022 History of Presen t illness Narrative FOLLOW UP VISIT - ENDOSCOPY NAME: Geo Mcguire [facility] NO.: [id number] DATE OF SERVICE: 10/28/2022 : 1960 REFERRING PHYSICIAN: Flip Leone MD Geo is a patient I am following for family history of colon cancer and need for high-risk surveillance colonoscopy. Dr. Kirk performed lower endoscopy on 10/15/22. The patient was found to have non-bleeding internal hemorrhoids, sigmoid diverticulosis, and a small sigmoid colon polyp which was removed. Pathology demonstrated: FINAL DIAGNOSIS Sigmoid colon polyp, biopsy: - Tubular adenoma. JEL 10/18/2022 The patient notes no complaints since the procedure. VITALS: Blood pressure 150/78, pulse 77, temperature 36.6 C (97.8 F), height 170.2 cm (5' 7), weight 72.8 kg (160 lb 9.6 oz), [...] which included preparing to see the patient, [id number] patient care, completing clinical documentation, obtaining and/or reviewing separately obtained history, counseling and educating the patient/family/caregiver, independently interpreting results (not separately reported), and communicating results to the patient/family/caregiver. Tyler Daniels PA-C documented in this encounter [facility] Clinical Note 10-15-2022 Note Date & Type Note Facility 10-15-2022 Note HNO ID: [id number] Author: Leanne Moss, JESSIE Service: ? Author Type: Registered Nurse Type: Nursing Progress Note Filed: 10/15/2022 10:17 AM Note Text: Abdomen soft non-distended. Will continue to monitor. [facility] Progress note 09-27-2022 Note Date & Type Note Facility 09-27-2022 Note HNO ID: [id number] Author: Tyler Daniels PA-C Service: ? Author Type: Physician Fuel Verification Technician Type: Progress Notes Filed: 09/27/2022 8:29 AM [...] entered by the nurse and reviewed by wy Nursing Notes: Jordyn Scott RN 09/27/2022 8:18 [...] pain/injury, d (more content not included)... [facility] Evaluation note Note Date & Type Note Facility Evaluation note No assessment information availa ble [facility] Work Phone: Evaluation note Note Date & Type Note Facility Evaluation note Diagnosis Onset Date Abdominal pain acute Elevated liver enzymes acute Umbilical hernia without obs truction or gangrene acute [facility] [facility] Work Phone: Evaluation note Note Date & Type Note Facility Evaluation note Diagnosis Family history of colon cancer- Primary Family history of malignant neoplasm of gastrointestinal tract Tubular adenoma Benign neoplasm of unspecified site Diverticulosis Diverticulosis of colon (without mention of hemorrhage) documented in this encounter [facility] Chief Complaint and Reason for Visit Chief Complaint E ORDERS Chief Complaint E ORDERS HERNIA Chief Complaint HERNIA UMBILICAL HERNIA eorders Abnormal levels of other serum enzymes Reason for Visit Abdominal pain Elevated liver enzymes Umbilical hernia without obstruction or gangrene Chief Complaint SCREEN ELEVATED LIVER ENZYMES Chief Complaint SCREEN Family History No Family History Records Found Relationship Condition Age at Onset Recorded Date/T yan Not Specified Malignant neoplasm of colon Unknown Hypertension Unknown High blood cholesterol Unknown Summary Purpose Advance Directives No Advanced Directives Records FoundNo Advanced Directives Records Found Additional Source Comments Goals (unrecognized section and content) Goals may be documented in a n alternate sectionGoals may be documented in an alternate sectionGoals may be documented in an alternate sectionGoals may be documented in an alternate sectionGoals may be documented in an alternate sectionGoals may be documented in an alternate sectionGoals may be documented in an alternate sectionGoals may be documented in an alternate sectionGoals may be documented in an alternate sectionGoals may be documented in an alternate section Care Teams (unrecognized sec tion and content) Team Status: Active Member Role Status Dates Dr. Flip Leone MD Family Provider Active Dr. Flip Leone MD Primary Care Provider Active Team Status: Inactive Member Role Status Dates Dr. Flip Leone MD Primary Care Provide r, Attending Provider, Referring Provider Active Patient Scheduler Relationship Specialty Start Date End Date Flip Leone MD [address] [place] [id number] PCP - General Family Medicine 06/15/17 Team Status: Inactive Member Role Status Dates Dr. Flip Leone MD Primary Care Provider, Attending Shimon oseguera Active Source Comments (unrecognize d section and content) In the event this informatio n is protected by the Federal Confidentiality of Alcohol and Drug Abuse Patient Records regulations: The Federal rules restrict any use of the information to criminally investigate or prosecute any alcohol or drug abuse patient.[facility] Reason for Visit (unrecogniz ed section and content) Reason Comments Follow Up colonoscopy INFORMATION SOURCE (unrecogn ized section and content) DATE CREATED AUTHOR 10/30/2022 [facility] DATE CREATED AUTHOR AUTHOR'S ORGANIZ ATION 05/22/2024 [facility] FOR RECORDS PERTAINING TO PATIENTS WHO ARE [...] BE BASED ON THE PRIMARY CLINICAL RECORDS. [employer] [facility]. provides no warranty or guarantee of the accuracy or completeness of information in this document.
[2024-11-02 12:05] LABS: AST(SGOT) 30 U/L (<=31); Alanine Aminotransfer ALT/SGPT 41 U/L (<=34); Albumin, Serum 4.5 g/dL (3.4-4.8); Alkaline Phosphatase 70 U/L (35-104); Anion Gap 12 (5-15); BUN 14 mg/dL (4-19); BUN/Creat Ratio 19.2 RATIO (10-20); Calcium,Total 9.5 mg/dL (7.6-11.0); Carbon Dioxide 23.7 mmol/L (21.0-32.0); Chloride 103 mmol/L (98-108); Cholesterol 220 mg/dL (<=200); Globulin 2.5 g/dL (2.2-4.2); Glucose 97 mg/dL (70-99); Low Density Lipoprotein Calc. 56 mg/dL; Potassium 4.6 mmol/L (3.3-5.1); Triglycerides 461 mg/dL; Very Low Density Lipoprotein 92 mg/dL (5-40); cholesterol:hdl ratio screen 3.06
== END | disposition home or self-care (01) ==
PROVIDERS: PCP Family Medicine; Referring Provider Family Medicine; Visit Provider Family Medicine
DX: I10 Essential (primary) hypertension (principal); E78.5 Hyperlipidemia, unspecified
CPT/HCPCS: 36415; 80053; 80061